=== PATIENT | male | born 1970 | race Caucasian/White ===

== ENCOUNTER 2023-05-05 08:21 | Inpatient (IN) ==
--- OUTSIDE RECORDS SUMMARY | 2023-05-05 08:27 | External Medical Summary | Summary of Care ---
Author Name Unknown Organization [facility] Address [address] [place] [address] Phone [phone] Care Team Providers Care Hand Bootmaker Name Role Phone Karuna Torres PA-C Primary Care Provider +1 [phone] Reason for Visit * Reason Onset Date Comments Medication Refill 03/22/2023 Encounter Details Date Type Department Care Team Description 03/22/2023 Refill General [facility] [address] Karuna Torres PA-C [address], [place] [id number] Acute deep vein thrombosis (DVT) of popliteal vein of left lower extremity (HCC) Allergies No known active allergiesdocumented as of this encounter (statuses as of 03/22/2023) Medications Medication Sig Dispensed Refills Start Date End Date Status Triamcinolone Acetonide 0.5 % External CreamIndications:Ecze ma, unspecified type Apply topically to affected area 2 times a day . To affected area. 60 g 5 10/03/2021 Active Betamethasone Dipropionate Aug 0.05 % External Cream (Diprolene AF) Apply to affected areas on legs, right forearm and back twice daily 50 g 0 04/02/2022 Active Famotidine 40 MG Oral Tablet (Pepcid)Indications:H eartburn TAKE 1 TABLET BY MOUTH EVERYDAY AT BEDTIME 90 Tablet 3 09/13/2022 Active Rivaroxaban 20 MG Oral Tablet (Xarelto)Indications: Acute deep vein thrombosis (DVT) of popliteal vein of left lower extremity (HCC) TAKE 1 TABLET BY MOUTH EVERY DAY WITH DINNER Strength: 20 mg 90 Tablet 1 12/24/2022 Active Acetaminophen 500 MG Oral Tablet (Tylenol) Take 2 Tablets by mouth once a week as needed. 0 Active One-A-Day Mens 50+ Oral Tablet Take 1 Tablet by mouth every morning. 0 Active Metoprolol Succinate ER 25 MG Oral Tablet Extended Release 24 Hour (toPROL XL)Indications:Suprav entricular tachycardia Take 1 Tablet by mouth daily as needed (palpitations). 90 Tablet 3 01/04/2023 Active documented as of this encounter (statuses as of 03/22/2023) Active Problems Problem Noted Date Acute deep vein thrombosis (DVT) of popl iteal vein of left lower extremity 10/03/2021 Neuropathy, median nerve, right 04/06/20 Family history of [place] (myocardial infarct ion) 09/09/2017 OBESITY, BMI= 36.47 07/24/10 07/24/2010 Acne vulgaris Overview: on tetracycline Heartburn documented as of this encounter (statuses as of 03/22/2023) Resolved Problems Problem Noted Date Resolved Date Obesity, Class II, BMI 35-39.9, isolated (see ac tual BMI) 06/01/2014 09/09/2017 Overview: bmi= 35.84 06/01/14 Routine medical exam 07/24/2010 09/09/2017 Screening for cardiovascular condition 1 09/09/2017 Pneumonia due to organism 07/24/20102017 Overview: ICD-10 update of inactive term ADVANCE DIRECTIVE INFORMATION 02/27/2006 Overview: No, Advance Directive brochure offered , patient declined. documented as of this encounter (statuses as of 03/22/2023) Immunizations No known immunizationsdocumented as of this encounter Social History Tobacco Use Types Packs/Day Years Used Date Smoking Tobacco: Some Days Cigars Smokeless Tobacco: Never Comments:States never smoked as a habit. started AT AGE 38 Alcohol Use Standard Drinks/Week Comments Yes 0 (1 standard drink = 0.6 oz pur e alcohol) On occasion Food Insecurity Answer Date Recorded Within the past 12 months, y ou worried that your food would run out before you got money to buy more. Never true 05/12/2019 Within the past 12 months, t he food you bought just didn't last and you didn't have money to get more. Never true 05/12/2019 Sex Assigned at Date Recorded Male 05/12/2019 1:[address] Job Start Date Occupation Industry Not on file Not on file Not on file documented as of this encounter Miscellaneous Notes * Telephone Encounter - Ailin Chaidez RPh - 03/22/2023 9:21 PM EDTRefused Prescriptions: Disp Refills Rivaroxaban 20 MG Oral Tablet (Xarelto) 90 Tab*0 Sig: TAKE 1 TABLET BY MOUTH EVERY DAY WITH DINNER Strength: 20 mgRefused By: AILIN CHAIDEZ for Refusal: Too soon documented in this encounter Plan of Treatment Health Maintenance Due Date Last Done Comments Hepatitis B (1 of 3 - 3-dose series) 1968 Pneumococcal Vaccine: Pediatrics (0 to 5 Years) and At-Risk Patients (6 to 64 Years) (1 - PCV) 1974 HIV Screening 11/12/1983 Hepatitis C Screening 1986 DTaP,Tdap,and Td Vaccines (1 - Tdap) 11/12/1987 Cologuard 2013 Colonoscopy 2013 Colorectal Cancer Screening 2013 Fecal Occult Blood Test 2013 Sigmoidoscopy 2013 Zoster Vaccines (1 of 2) 2018 Depression Screening 05/12/2020 05/12/2019 COVID-19 Vaccine (2 - 2022-) 02/01/2023 09/10/2020 Influenza Vaccine (FLU shot) (#1) 2023 Diabetes Screening 04/27/2025 04/27/2022, 0 12/18/2021, 10/03/2021, Additional history exists Lipid Panel 01/04/2028 01/03/2023, 04/04, 05/11/2019 GARDASIL-HPV IMMUNIZATION SERIES Aged Out No longer eligible based on patient's age to complete this topic MENINGOCOCCAL (MENACTRA/MENVEO) Aged Out No longer eligible based on patient's age to complete this topic documented as of this encounter Medical Devices Not on filedocumented as of this encounter Visit Diagnoses Diagnosis Acute deep vein thrombosis (DVT) of popliteal vein of left lower extremity (HCC) documented in this encounter Care Teams Hand Bootmaker Relationship Specialty Start Date End Date Karuna Torres PA-C [address] [place] [address] PCP - General Physician Electrical Products Engineer 05/13/19 documented as of this encounter
--- OUTSIDE RECORDS SUMMARY | 2023-05-05 08:27 | External Medical Summary | Summary of Care ---
Author Name Unknown Organization [facility] Address [address] [place] [address] Phone [phone] Care Team Providers Care Bulk Truck Driver Name Role Phone Karuna Torres PA-C Primary Care Provider [phone] [phone] Reason for Visit * Reason Comments eRx-Medication Refill Encounter Details Date Type Department Care Team Description 12/23/2022 Refill General Internal Medicine [facility] [address] Karuna Torres PA-C [address] [place], [place] [id number] Acute deep vein thrombosis (DVT) of popliteal vein of left lower extremity (HCC) Allergies No known active allergiesdocumented as of this encounter (statuses as of 12/24/2022) Medications Medication Sig Dispensed Refills Start Date End Date Status Triamcinolone Acetonide 0.5 % External CreamIndications:Ecz kirill, unspecified type Apply topically to affected area 2 times a day . To affected area. 60 g 5 10/03/2021 Active Betamethasone Dipropionate Aug 0.05 % External Cream (Diprolene AF) Apply to affected areas on legs, right forearm and back twice daily 50 g 0 04/02/2022 Active Rosuvastatin Calcium 5 MG Oral Tablet (Crestor) Take 1 Tablet (5 mg) by mouth in the morning. 30 Tablet 11 05/03/2022 Active Additional Information Patient not taking.Reported on 07/16/2022 Famotidine 40 MG Oral Tablet (Pepcid)Indications: Heartburn TAKE 1 TABLET BY MOUTH EVERYDAY AT BEDTIME 90 Tablet 3 09/13/2022 Active Metoprolol Succinate ER 25 MG Oral Tablet Extended Release 24 Hour (toPROL XL)Indications:Supra ventricular tachycardia (HCC) Take 1 Tablet by mouth in the morning. 90 Tablet 3 11/14/2022 Active Rivaroxaban 20 MG Oral Tablet (Xarelto)Indications :Acute deep vein thrombosis (DVT) of popliteal vein of left lower extremity (HCC) TAKE 1 TABLET BY MOUTH EVERY DAY WITH DINNER Strength: 20 mg 90 Tablet 1 12/24/2022 Active documented as of this encounter (statuses as of 12/24/2022) Active Problems Problem Noted Date Acute deep vein thrombosis (DVT) of popl iteal vein of left lower extremity 10/03/2021 Neuropathy, median nerve, right 04/06/20 Family history of [place] (myocardial infarct ion) 09/09/2017 OBESITY, BMI= 36.47 07/24/10 07/24/2010 Acne vulgaris Overview: on tetracycline Heartburn documented as of this encounter (statuses as of 12/24/2022) Resolved Problems Problem Noted Date Resolved Date [...] as of this encounter (statuses as of 12/24/2022) Immunizations No known immunizationsdocumented as of this encounter Social History Tobacco Use Types Packs/Day Years Used Date Smoking Tobacco: Some Days Cigars Smokeless Tobacco: Never Comments:States never smoked as a habit. started AT AGE 38 Alcohol Use Standard Drinks/Week Comments Yes 0 (1 standard drink = 0.6 oz pur e alcohol) Food Insecurity Answer Date Recorded Within the [...] encounter Miscellaneous Notes * Telephone Encounter - Vilma Franco RPh - 12/24/2022 3:25 PM EDT Refused Prescriptions: Disp Refills Xarelto 20 MG Oral Tablet (Rivaroxaban) 90 Tab*0 Sig: TAKE 1 TABLET BY MOUTH EVERY DAY WITH DINNERRefused By: VILMA FRANCO for Refusal: Duplicate Re quest documented in this encounter Plan of Treatment Upcoming Encounters Date Type Specialty Care Team Description 01/04/2023 Office Visit Cardiology Luann Petty CRNP [address] [place] [address] Health Maintenance Due Date Last Done Comments [...] Zoster Vaccines (1 of 2) 2018 Depression Screening, Annual for Pts 12 and Over 05/12/2020 05/12/2019 COVID-19 Vaccine (2 - Booster for Shellie series) 11/05/2020 09/10/2020 Influenza Vaccine (FLU shot) (#1) 2023 Diabetes Screening 04/27/2025 04/27/2022, 0 12/18/2021, 10/03/2021, Additional history exists Lipid Panel 04/27/2027 04/27/2022, 05/11/2019 GARDASIL-HPV IMMUNIZATION SERIES Aged Out No [...] (HCC) documented in this encounter Care Teams Bulk Truck Driver Relationship Specialty Start Date End Date Karuna Torres PA-C [address] [place] [address] PCP - General Physician Commercial Painter 05/13/19 documented as of this encounter
--- OUTSIDE RECORDS SUMMARY | 2023-05-05 08:27 | External Medical Summary ---
Author Name Unknown Address Unknown Organization [id number]:[facility] - [address] [place] [address] Laboratory Report Ordering Provider Test Date Status SHANTELLE JOSHI 01/03/2023 07:20:03 Final Observation Date Value Abnormality Reference (Units ) Status Triglyceride 01/03/2023 07:20:03 255 Above high normal <=174 (mg/dL) Final Triglyceride Reference Range s (mg/dL):
<150 Acceptable
150-174 Borderline high
175-499 High
>=500 Very high Cholesterol 01/03/2023 07:20:03 168 <200 (mg /dL) Final Total Cholesterol Reference Ranges (mg/dL):
<200 Desirable
200-239 Borderline high
>=240 High HDL 01/03/2023 07:20:03 41 >39 (mg/dL ) Final HDL Cholesterol Reference Ra nges (mg/dL):
>=60 High (Desirable)
<50 Low (Undesirable) For Females
<40 Low (Undesirable) For Males NON-HDL CHOLESTEROL 01/03/2023 07:20:03 127 <=159 (mg/dL) Final Non-HDL Cholesterol Referenc e Range (mg/dL):
<100 Target level for high risk ASCVD patient
<130 Optimal for general population
130-159 Near optimal for general population
160-189 Borderline High
190-219 High
>=220 Very High Performing Location [facility] - [address] [place] [address]
--- OUTSIDE RECORDS SUMMARY | 2023-05-05 08:27 | External Medical Summary | Summary of Care ---
Author Name Unknown Organization [facility] Address [address] [facility] [place] [address] Phone [phone] Care Team Providers Care Retail Event Coordinator Name Role Phone Karuna Torres PA-C Primary Care Provider [phone] [phone] Encounter Details Date Type Department Care Team Description 11/14/2022 Refill Cardiology, [facility] [address] [facility] [place] [address] Bronson Stokes, [address] [facility] [address] Supraventricular tachycardia (HCC) Allergies No known active allergiesdocumented as of this encounter (statuses as of 11/14/2022) Medications Medication Sig Dispensed Refills Start Date End Date Status Triamcinolone Acetonide 0.5 % External CreamIndications:E czema, unspecified type Apply topically to affected area [...] on 07/16/2022 Famotidine 40 MG Oral Tablet (Pepcid)Indication s:Heartburn TAKE 1 TABLET BY MOUTH EVERYDAY AT BEDTIME 90 Tablet 3 09/13/2022 Active Xarelto 20 MG Oral Tablet (Rivaroxaban)Indic ations:Acute deep vein thrombosis (DVT) of popliteal vein of left lower extremity (HCC) TAKE 1 TABLET BY MOUTH EVERY DAY WITH DINNER 90 Tablet 0 09/26/2022 Active Metoprolol Succinate ER 25 MG Oral Tablet Extended Release 24 Hour (toPROL XL)Indications:Sup raventricular tachycardia (HCC) Take 1 Tablet by mouth in the morning. 90 Tablet 3 11/14/2022 Active Metoprolol Succinate ER 25 MG Oral Tablet Extended Release 24 Hour (toPROL XL)Indications:Sup raventricular tachycardia (HCC) Take 1 Tablet by mouth in the morning. 90 Tablet 3 09/25/2022 Discontinue d(Refill) documented as of this encounter (statuses as of 11/14/2022) Active Problems Problem Noted Date Acute deep vein thrombosis (DVT) of popl iteal vein of left lower extremity 10/03/2021 Neuropathy, median nerve, right 04/06/20 Family history of [place] (myocardial infarct ion) 09/09/2017 OBESITY, BMI= 36.47 07/24/10 07/24/2010 Acne vulgaris Overview: on tetracycline Heartburn documented as of this encounter (statuses as of 11/14/2022) Resolved Problems Problem Noted Date Resolved Date [...] as of this encounter (statuses as of 11/14/2022) Immunizations No known immunizationsdocumented as of this [...] encounter Miscellaneous Notes * Telephone Encounter - Bronson Stokes DO - 11/14/2022 12:37 PM EDTSigned Prescriptions: Disp Refills Metoprolol Succinate ER 25 MG Oral Tablet *90 Tab*3 Sig: Take 1 Tablet by mouth in the morning. Authorizing Provider: BRONSON STOKES * Telephone Encounter - Bao Choe RN - 11/14/2022 11:11 AM EDT Pending Prescriptions: Disp Refills Metoprolol Succinate ER 25 MG Oral Tablet*90 Tab*3 Sig: Take 1 Tablet by mouth in the morning. Last Visit: 10/04/2022 (in office), Visit date not found (telemedicine) Next Visit: 01/04/2023 Last medication order date: 09/25/2022 Have you choosen a preferred pharm?? yes Patient Active Problem List Diagnosis Code OBESITY, BMI= 36.47 07/24/10 E66.9 Acne vulgaris L70.0 Family history of [place] (myocardial infarction) Z82.49 Heartburn R12 Neuropathy, median nerve, right G56.11 Acute deep vein thrombosis (DVT) of popliteal vein of left lower extremity (HCC) I82.432 Labs: Lab Results Component Value Date/Time CREATININE - [facility] 0.9 04/27/2022 07:15 AM CREATININE - [facility] 0.9 05/11/2019 07:28 AM Lab Results Component Value Date/Time POTASSIUM - [facility] 4.5 04/27/2022 07:15 AM POTASSIUM - [facility] 4.5 05/11/2019 07:28 AM Lab Results Component Value Date/Time TSH - [facility] 2.75 10/03/2021 09:49 AM TSH - [facility] 3.18 03/05/2020 09:12 AM Lab Results Component Value Date/Time LDL CHOLESTEROL (CALCULATED) - [facility] 73 04/27/2022 07:15 AM LDL CHOLESTEROL (CALCULATED) - [facility] 79 05/11/2019 07:28 AM Lab Results Component Value Date/Time ALT - [facility] 25 04/27/2022 07:15 AM ALT - [facility] 32 05/11/2019 07:28 AM Hemoglobin AIC Results: No results found for: HEMOGLOBIN A1C documented in this encounter Plan of Treatment Upcoming Encounters Date Type Specialty Care Team Description 12/19/2022 Office Visit Hematology Oncology Carmina Dawn MD [address] [facility] [place] [address] 01/04/2023 Office Visit Cardiology Luann Petty CRNP [address] [facility] [place] [address] Health Maintenance Due Date Last Done Comments [...] series) 11/05/2020 09/10/2020 Influenza Vaccine (FLU shot) (Season Ended) 2023 Diabetes Screening 04/27/2025 04/27/2022, 0 12/18/2021, [...] as of this encounter Visit Diagnoses Diagnosis Supraventricular tachycardia (HCC) Other specified cardiac dysrhythmias documented in this encounter Care Teams Retail Event Coordinator Relationship Specialty Start Date End Date Karuna Torres PA-C [address] [place] [address] PCP - General Physician Marble Chip Terrazzo Worker 05/13/19 documented as of this encounter
--- OUTSIDE RECORDS SUMMARY | 2023-05-05 08:27 | External Medical Summary | Summary of Care ---
Author Name Unknown Organization [facility] Address [address] [facility] [place] [address] Phone [phone] Care Team Providers Care Green Pipefitter Name Role Phone Karuna Torres PA-C Primary Care Provider +1 [phone] Reason for Visit * Reason Onset Date Comments Medication Refill 12/23/2022 Encounter Details Date Type Department Care Team Description 12/23/2022 Refill General Internal Medicine [facility] [place] [address] [facility] [place] [address] Tyrone Rooney PA-C [address] [facility] [place] [address] Acute deep vein thrombosis (DVT) of popliteal [...] 11/14/2022 Active Rivaroxaban 20 MG Oral Tablet (Xarelto)Indicatio ns:Acute deep vein thrombosis (DVT) of popliteal vein of left lower extremity (HCC) TAKE 1 TABLET BY MOUTH EVERY DAY WITH DINNER Strength: 20 mg 90 Tablet 1 12/24/2022 Active Xarelto 20 MG Oral Tablet (Rivaroxaban)Indic ations:Acute deep vein thrombosis (DVT) of popliteal vein of left lower extremity (HCC) TAKE 1 TABLET BY MOUTH EVERY DAY WITH DINNER 90 Tablet 0 09/26/2022 Discontinue d(Refill) documented as of this encounter (statuses as of 12/24/2022) Active Problems Problem Noted Date Acute deep vein thrombosis (DVT) of popl iteal vein of left lower extremity 10/03/2021 Neuropathy, median nerve, right 04/06/20 Family history of [place] (myocardial infarct ion) 09/09/2017 OBESITY, BMI= 36.47 [...] encounter Miscellaneous Notes * Telephone Encounter - Karuna Torres PA-C - 12/24/2022 12:54 PM EDTSigned Prescriptions: Disp Refills Rivaroxaban 20 MG Oral Tablet (Xarelto) 90 Tab*1 Sig: TAKE 1 TABLET BY MOUTH EVERY DAY WITH DINNER Strength: 20 mg Authorizing Provider: KARUNA TORRSE * Telephone Encounter - John Sanders LPN - 12/24/2022 8:34 AM EDTPending Prescriptions: Disp Refills Rivaroxaban 20 MG Oral Tablet (Xarelto) 90 Tab*1 Sig: TAKE 1 TABLET BY MOUTH EVERY DAY WITH DINNER Strength: 20 mg * Telephone Encounter - John Sanders LPN - 12/24/2022 8:30 AM EDT Provider to address: Pending Prescriptions: Disp Refills Rivaroxaban 20 MG Oral Tablet (Xarelto) 90 Tab*1 Sig: TAKE 1 TABLET BY MOUTH EVERY DAY WITH DINNER Strength: 20 mg Last Visit: 10/20/2021 (in office), Visit date not found (telemedicine) Next Visit: Visit date not found Last date the medication was ordered: 09/26/22 Patient Active Problem List Diagnosis Code OBESITY, BMI= 36.47 07/24/10 E66.9 Acne vulgaris L70.0 Family history of [place] (myocardial infarction) Z82.49 Heartburn R12 Neuropathy, median [...] Results: No results found for: HEMOGLOBIN A1C Reason for Call: Medication Refill Contact: [facility] Contact Type: Medication Outcome: pending Total Time including non face to face (minutes): 5 documented in this encounter Plan of Treatment Upcoming Encounters Date Type Specialty Care Team Description 01/04/2023 Office Visit Cardiology Luann Petty CRNP [address] [place] [address] Health Maintenance Due Date Last Done Comments [...] (HCC) documented in this encounter Care Teams Green Pipefitter Relationship Specialty Start Date End Date Karuna Torres PA-C [address] [place] [address] PCP - General Physician Chrome Tanner 05/13/19 documented as of this encounter
--- OUTSIDE RECORDS SUMMARY | 2023-05-05 08:27 | External Medical Summary | Summary of Care ---
Author Name Unknown Organization [facility] Address [address] [facility] [place] [address] Phone [phone] Care Team Providers Care Hogshead Head Matcher Name Role Phone Karuna Torres PA-C Primary Care Provider +1 [phone] Reason for Visit * Reason Onset Date Comments Medication Refill 03/22/2023 Encounter Details Date Type Department Care Team Description 03/22/2023 Refill General Internal Medicine [facility] [place] [address] [facility] [place] [address] Tyrone Rooney PA-C [address] [facility] [place] [address] Heartburn Allergies No known active allergiesdocumented as of this encounter (statuses as of 03/23/2023) Medications Medication Sig Dispensed Refills Start Date End Date Status Triamcinolone Acetonide 0.5 % External CreamIndications:E czema, unspecified type Apply topically to affected area 2 times a day . To affected area. 60 g 5 10/03/2021 Active Betamethasone Dipropionate Aug 0.05 % External Cream (Diprolene AF) Apply to affected areas on legs, right forearm and back twice daily 50 g 0 04/02/2022 Active Rivaroxaban 20 MG Oral Tablet (Xarelto)Indicatio [...] Release 24 Hour (toPROL XL)Indications:Sup raventricular tachycardia Take 1 Tablet by mouth daily as needed (palpitations). 90 Tablet 3 01/04/2023 Active Famotidine 40 MG Oral Tablet (Pepcid)Indication s:Heartburn Take 1 Tablet by mouth at bedtime. 90 Tablet 0 03/23/2023 Active Famotidine 40 MG Oral Tablet (Pepcid)Indication s:Heartburn TAKE 1 TABLET BY MOUTH EVERYDAY AT BEDTIME 90 Tablet 3 09/13/2022 03/22/2023 Discontinue d(Refill) documented as of this encounter (statuses as of 03/23/2023) Active Problems Problem Noted Date Acute deep vein thrombosis (DVT) of popl iteal vein of left lower extremity 10/03/2021 Neuropathy, median nerve, right 04/06/20 Family history of [place] (myocardial infarct ion) 09/09/2017 OBESITY, BMI= 36.47 07/24/10 07/24/2010 Acne vulgaris Overview: on tetracycline Heartburn documented as of this encounter (statuses as of 03/23/2023) Resolved Problems Problem Noted Date Resolved Date [...] as of this encounter (statuses as of 03/23/2023) Immunizations No known immunizationsdocumented as of this [...] Miscellaneous Notes * Telephone Encounter - Bronson Mejía [facility] - 03/23/2023 8:45 AM EDTSigned Prescriptions: Disp Refills Famotidine 40 MG Oral Tablet (Pepcid) 90 Tab*0 Sig: Take 1 Tablet by mouth at bedtime.Authorizing Provider: KARUNA TORRES User: BRONSON [place]------- * Telephone Encounter - Bronson Mejía [facility] - 03/23/2023 8:45 AM EDT Please contact patient so that an appointment can be scheduled with his PRIMARY CARE provider. Refill authorized to hold patient over in the mean time. Last Visit: 09/08/2021 (in office), Visit date not found (telemedicine) Next Visit: Visit date not found Thank You, Bronson [place] [facility] Clinical Pharmacist [facility] ([facility]) (formerly Telepharmacy) 03/23/2023, 8:45 AM * Telephone Encounter - Bronson Mejía [facility] - 03/23/2023 8:43 AM EDT Pending Prescriptions: Disp Refills Famotidine 40 MG Oral Tablet (Pepcid) 90 Tab*3 Last Visit: 09/08/2021 (in office), Visit date not found (telemedicine) Next Visit: Visit date not found If no future appointments scheduled, and last appointment is greater than a year ago, please schedule patient for a follow-up appointment Last date the medication was ordered: 09/13/22 Pharmacy: [id number] [id number] [facility] Is this request for a controlled substance? No Urine Drug Screen:No results found for this or any previous visit. Patient Phone Numbers Labs: Lab Results Component Value Date/Time CREAT 0.9 04/27/2022 07:15 AM CREAT 0.9 05/11/2019 07:28 AM POTASSIUM 4.5 04/27/2022 07:15 AM POTASSIUM 4.5 05/11/2019 07:28 AM TSH 2.75 10/03/2021 09:49 AM TSH 3.18 03/05/2020 09:12 AM LDLCALC 73 04/27/2022 07:15 AM LDLCALC 79 05/11/2019 07:28 AM LDLDIRECT 97 01/03/2023 07:20 AM ALT 25 04/27/2022 07:15 AM ALT 32 05/11/2019 07:28 AM documented in this encounter Plan of Treatment [...] 2018 Depression Screening 05/12/2020 05/12/2019 COVID-19 Vaccine ( season) 2023 09/10/2020 Influenza Vaccine (FLU shot) (#1) 2023 [...] as of this encounter Visit Diagnoses Diagnosis Heartburn documented in this encounter Care Teams Hogshead Head Matcher Relationship Specialty Start Date End Date Karuna Torres PA-C [address] [place] [address] PCP - General Physician Mutual Fund Accountant 05/13/19 documented as of this encounter
--- OUTSIDE RECORDS SUMMARY | 2023-05-05 08:27 | External Medical Summary ---
Author Name Unknown Address Unknown Organization : Laboratory Report Ordering Provider Test Date Status SHANTELLE JOSHI 01/03/2023 07:20:03 Final Observation Date Value Abnormality Reference (Units ) Status Lipoprotein A 01/03/2023 07:20:03 <10 <75 (n mol/L) Final Assay was repeated and verif ied.
Risk Category
Optimal < 75 nmol/L
Moderate 75 - 125 nmol/L
High > 125 nmol/L
Cardiovascular event risk category cut points
(optimal, moderate, high) are based on Mary Davila
JACC 2017;69:692-711.

Test Performed at:
[facility]
[address]
[place] [address]
Jimmie Stiles M.D., Ph.D.,Director of Laboratories Performing Location
--- OUTSIDE RECORDS SUMMARY | 2023-05-05 08:27 | External Medical Summary | Summary of Care ---
Author Name Unknown Organization [facility] Address [address] [place] [address] Phone [phone] Care Team Providers Care Reproductive Endocrinologist Name Role Phone Karuna Torres PA-C Primary Care Provider [phone] Reason for Visit * Reason Comments Outpatient Testing Encounter Details Date Type Department Care Team Description 01/03/2023 Laboratory Laboratory, [facility] [address] [place] [address] [facility] [address] [place] [address] Dyslipidemia, goal LDL below 70; Abnormal echocardiogram; Supraventricular tachycardia (HCC); ASVD (arteriosclerotic vascular disease) Allergies No known active allergiesdocumented as of this encounter (statuses as of 01/03/2023) Medications Medication Sig Dispensed Refills Start Date [...] as of this encounter (statuses as of 01/03/2023) Active Problems Problem Noted Date Acute deep vein thrombosis (DVT) of popl iteal vein of left lower extremity 10/03/2021 Neuropathy, median nerve, right 04/06/20 Family history of OR (myocardial infarct ion) 09/09/2017 OBESITY, BMI= 36.47 07/24/10 07/24/2010 Acne vulgaris Overview: on tetracycline Heartburn documented as of this encounter (statuses as of 01/03/2023) Resolved Problems Problem Noted Date Resolved Date [...] as of this encounter (statuses as of 01/03/2023) Immunizations No known immunizationsdocumented as of this [...] on file documented as of this encounter Plan of Treatment Upcoming Encounters Date Type Specialty Care Team Description 01/04/2023 Office Visit Cardiology Luann Petty CRNP [address] [place] [address] Pending Results Name Type Priority Associated Diagnoses Date /Time LIPOPROTEIN (A) Lab Routine Dyslipidemia, goal LDL below 70 Abnormal echocardiogram Supraventricular tachycardia (HCC) ASVD (arteriosclerotic vascular disease) 01/03/2023 7:20 AM EDT LIPID PANEL WITH DIRECT LDL IF TG IS HIGH Lab Routine Dyslipidemia, goal LDL below 70 Abnormal echocardiogram Supraventricular tachycardia (HCC) ASVD (arteriosclerotic vascular disease) 01/03/2023 7:20 AM EDT Health Maintenance Due Date Last Done Comments [...] as of this encounter Visit Diagnoses Diagnosis Dyslipidemia, goal LDL below 70 Other and unspecified hyperlipidemia Abnormal echocardiogram Nonspecific (abnormal) findings on radiological and other examination of other intrathoracic organs Supraventricular tachycardia (HCC) Other specified cardiac dysrhythmias ASVD (arteriosclerotic vascular disease) Generalized and unspecified atherosclerosis documented in this encounter Care Teams Reproductive Endocrinologist Relationship Specialty Start Date End Date Karuna Torres PA-C [address], [place] [id number] PCP - General Physician Licensed Home Inspector 05/13/19 documented as of this encounter
--- OUTSIDE RECORDS SUMMARY | 2023-05-05 08:27 | External Medical Summary | Summary of Care ---
Author Name Unknown Organization [facility] Address [address] [place] [facility] [place] [address] Phone [phone] Care Team Providers Care Petroleum Refining Equipment Operator Name Role Phone Karuna Torres PA-C Primary Care Provider [phone] Reason for Visit * Reason Comments Follow Up 3 month follow up. O ne episode about a month ago of SVT that lasted 5- 10 minutes and took a metoprolol. Edema in left leg is the same. Denies chest pain, SOB and dizziness. Encounter Details Date Type Department Care Team Description 01/04/2023 Office Visit Cardiology, [facility] [address] [facility] [place] [id number] Luann [facility]ty CRNP [address] [place] [place] [address] Supraventricular tachycardia (HCC)*; Dyslipidemia, goal LDL below 100; Hyperlipemia, mixed Allergies No known active allergiesdocumented as of this encounter (statuses as of 01/04/2023) Medications Medication Sig Dispensed Refills Start Date [...] 04/02/2022 Active Famotidine 40 MG Oral Tablet (Pepcid)Indication s:Heartburn TAKE 1 TABLET BY MOUTH EVERYDAY AT BEDTIME 90 Tablet 3 09/13/2022 Active Rivaroxaban 20 MG Oral Tablet (Xarelto)Indicatio [...] tachycardia (HCC) Take 1 Tablet by mouth daily as needed (palpitations). 90 Tablet 3 01/04/2023 Active Rosuvastatin Calcium 5 MG Oral Tablet (Crestor) Take 1 Tablet (5 mg) by mouth in the morning. 30 Tablet 11 05/03/2022 3 Discontinued Metoprolol Succinate ER 25 MG Oral Tablet Extended Release 24 Hour (toPROL XL)Indications:Sup raventricular tachycardia (HCC) Take 1 Tablet by mouth in the morning. 90 Tablet 3 11/14/2022 3 Discontinued documented as of this encounter (statuses as of 01/04/2023) Active Problems Problem Noted Date Acute deep vein thrombosis (DVT) of popl iteal vein of left lower extremity 10/03/2021 Neuropathy, median nerve, right 04/06/20 20 Family history of UT (myocardial infarct ion) 09/09/2017 OBESITY, BMI= 36.47 07/24/10 07/24/2010 Acne vulgaris Overview: on tetracycline Heartburn documented as of this encounter (statuses as of 01/04/2023) Resolved Problems Problem Noted Date Resolved Date [...] as of this encounter (statuses as of 01/04/2023) Immunizations No known immunizationsdocumented as of this encounter Social History Tobacco Use Types Packs/Day Years Used Date Smoking Tobacco: Some Days Cigars Smokeless Tobacco: Never Tobacco Cessation:Ready to Q uit: Not Asked; Counseling Given: Not Answered Comments:States never smoked as a habit. started [...] on file documented as of this encounter Last Filed Vital Signs Vital Sign Reading Time Taken Comments Blood Pressure 126/86 01/04/2023 9:22 AM EDT Pulse 80 01/04/2023 9:22 AM EDT Temperature - - Respiratory Rate 16 01/04/2023 9:22 AM EDT Oxygen Saturation - - Inhaled Oxygen Concentration - - Weight 124.2 kg (273 lb 12 oz) 01/04/2023 9:22 A M EDT Height - - Body Mass Index 37.13 11/08/2021 10:01 AM EDT documented in this encounter Progress Notes * OBI Hernandez - 01/04/2023 9:30 AM EDT Cardiology Outpatient Visit 01/04/2023 Primary Radiology Transcriptionist: Dr. Stokes Past medical history: 1. Palpitations, x1 episode of prolonged SVT which was a triggered event per zio, 10/2021 2. Abnormal Echo, 10/19/2021- ? Mass, felt to be due to artifact from aortic sclerosis per Dr. Stokes's review of imaging. 3. Hx of unprovoked left leg DVT, 10/2021, on Xarelto following with heme a. Possible lupus? Blood work thought to be a false-positive due to Xarelto per Hematology (12/20/2021 OV note) HPI 52-year-old male presenting to the cardiology office today in routine follow-up. Was last evaluatedby Dr. Stokes approximately 3 months ago. At his last appointment he was feeling generally well but did have concerns regarding erectile dysfunction, felt that metoprolol was contributing and medication was ultimately discontinued. About 1 month ago patient had an episode of palpitations that lastedabout 5-10 minutes. He took 25 mg of metoprolol with relief in symptoms. Does not utilized beta-blockers since that time. Today the patient presents feeling well and offers no acute concerns. Denies any exertional chest pain or unusual shortness of breath. No further palpitations. No dizziness or syncope. No orthopnea or PND. Has chronic left lower extremity edema due to prior DVT in October of 2021. Symptoms at baseline.No fever, chills, cough, hematochezia, melena, or hemoptysis. He states he is compliant with all medications, and offers no side effects. Lipid panel was performed prior to today's appointment- LDL controlled. LP(a) pending. Patient remains hesitant to start statin therapy given potential side effects of brain fog. Current Outpatient Medications Medication Sig Dispense Refill Triamcinolone Acetonide 0.5 % External Cream Apply topically to affected area 2 times a day . To affected area. 60 g 5 Betamethasone Dipropionate Aug 0.05 % External Cream (Diprolene AF) Apply to affected areas on legs, right forearm and back twice daily 50 g 0 Famotidine 40 MG Oral Tablet (Pepcid) TAKE 1 TABLET BY MOUTH EVERYDAY AT BEDTIME 90 Tablet 3 Rivaroxaban 20 MG Oral Tablet (Xarelto) TAKE 1 TABLET BY MOUTH EVERY DAY WITH DINNER Strength: 20 mg 90 Tablet 1 Acetaminophen 500 MG Oral Tablet (Tylenol) Take 2 Tablets by mouth once a week as needed. One-A-Day Mens 50+ Oral Tablet Take 1 Tablet by mouth every morning. Metoprolol Succinate ER 25 MG Oral Tablet Extended Release 24 Hour (toPROL XL) Take 1 Tablet bymouth daily as needed (palpitations). 90 Tablet 3 No current facility-administered medications for this visit. 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 started AT AGE 38 Vaping Use Vaping Use: Never used Substance Use Topics Alcohol use: Yes Comment: On occasion Drug use: No Comment: LIVES ON COFFEE/ENERGY DRINKS Review of patient's allergies indicates: No Known Allergies Review of Systems: See HPI for pertinent positives. All others negative, other than those noted in HPI. Physical Exam BP 126/86 | Pulse 80 | Resp 16 | Wt 124.2 kg (273 lb 12 oz) | BMI 37.13 kg/m | BSA 2.51 m General: No acute distress. A+Ox3. HEENT: Normocephalic. Atraumatic. Conjunctiva and sclera clear. NECK: No carotid bruits. No JVD. Carotid upstrokes are brisk. Heart: RRR. S1 and S2 noted without murmur, rubs, gallops. PMI non displaced. Lungs: Clear to auscultation. No wheezes, rhonchi, rales. Abdomen: Normal bowel sounds. Soft. Nontender. No masses or organomegaly. No abdominal bruits. Extremities: Trace nonpitting bilateral lower extremity edema, left worse than right. No clubbing or cyanosis. Pulses: radial=2/4, posterior tibial=2/4, dorsalis pedis = 2/4. NEURO: No focal deficits. PSYCH: Normal. Lab data/imaging study review: Echo 10/19/2021 The examination is adequate to evaluate the referral indication. The qualitative LV ejection fraction is 60-64% (normal). The left ventricular diastolic function is mildly abnormal (grade I). The left atrium is normal sized. There is a possible small left atrial echodensity visualized in the parasternal long-axis and parasternal RV inflow/outflow view. Findings represent artifact verses intracardiac mass. Consider transesophageal echocardiogram for further evaluation. o 10/03/2021 Patient had a min HR of 59 bpm, max HR of 226 bpm, and avg HR of 89 bpm. Predominant underlying rhythm was Sinus Rhythm. 9 Supraventricular Tachycardia runs occurred, the run with the fastest interval lasting 11 mins 42 secs with a max rate of 226 bpm (avg 186 bpm); the run with the fastest interval was also the longest. Supraventricular Tachycardia was detected within +/- 45 seconds of symptomatic patient event(s). Isolated SVEs were rare (<1.0%), SVE Couplets were rare (<1.0%), and SVE Triplets were rare (<1.0%). Isolated VEs were rare (<1.0%), and no VE Couplets or VE Triplets were present. MD notification criteria for Supraventricular Tachycardia met - report posted prior to notification per account request (KG). A patient triggered event as well as diary triggered event correlated with an episode of supraventricular tachycardia ( SVT) which occurred on 10/05/2021, onset 5:27 p.m., that lasted 11 minutes and 42 seconds, with average rate of 186 beats per minute, rate range 148 beats per minute- to 126 beats per min. Impression/Plan: 1. Supraventricular tachycardia (HCC) -History of paroxysmal symptomatic SVT, only symptomatic with longer episodes. -Erectile dysfunction with beta-que therapy 1. Symptoms generally well controlled. Okay to utilize metoprolol succinate 25 mg on an as-needed basis. 2. Mixed hyperlipidemia -LDL borderline controlled, 97. Goal LDL below 100. Triglycerides elevated. -Lipoprotein(a) pending The 10-year ASCVD risk score (Gage DK, et al., 2019) is: 9.3% Values used to calculate the score: Age: 52 years Sex: Male Is Non- : No Diabetic: No Tobacco smoker: Yes Systolic Blood Pressure: 126 mmHg Is BP treated: No HDL Cholesterol: 41 mg/dL Total Cholesterol: 168 mg/dL 1. Once ASCVD risk is greater than 7.5% statin therapy is recommended. Patient is hesitant on starting statin therapy at this time. Should lipoprotein(a) be elevated would again recommend statin therapy initiation. In the meantime patient will work on lifestyle modifications and plan on repeating acholesterol panel in 6 months. The patient agrees to the above plan and will call with additional questions or concerns. ER with all emergencies advised. Follow Up: Return in about 1 year (around 01/05/2024). I spent a total of 30 minutes on the date of service in preparation, delivery, and documentation ofthe care provided to Al Puente excluding any time spent in the performance of separately billed services. OBI Maddox, Department of Cardiology This chart was completed in part utilizing [employer] Speech Voice Recognition Software. Grammatical errors, random word insertions, prounoun errors, and incomplete sentences are an occasional consequence of this system due to software limitations, ambient noise, and hardware issues. Any formal questions or concerns about the content, text, or information contained within the body of this dictation should be directly addressed to the provider for clarification. documented in this encounter Nursing Notes * Bry Gamble LPN - 01/04/2023 9:22 AM EDT Patient identified by full name and date of Chief Complaint Patient presents with Follow Up 3 month follow up. One episode about a month ago of SVT that lasted 5-10 minutes and took a metoprolol. Edema in left leg is the same. Denies chest pain, SOB and dizziness. Examination Room: 7 Name: Al Puente Date of : (1970). Reason for Visit: 3 month follow up. Interim Hospitalization(s): Denies Problems/Concerns: See chief complaint Chest Pain/SOB: See chief complaint [facility] Discussed: Not applicable [facility] is a way you can talk to your provider online through e-mail. Would you like to sign up? I can activate it for you? ALREADY ACTIVE Patient was instructed to not get up on the exam table until directed and assisted by their provider; patient is to remain seated in the chair/ wheelchair/ exam table for fall prevention and safety reasons. Patient is aware to have assistance to step down off exam table with personnel. Patient voiced full comprehension of instructions. documented in this encounter Plan of Treatment Scheduled Orders Name Type Priority Associated Diagnoses Orde r Schedule EKG EKG Routine Supraventricular tachycardia (HCC) Ordered: 01/04/2023 LIPID PANEL WITH DIRECT LDL IF TG IS HIGH Lab Routine Supraventricular tachycardia (HCC) Dyslipidemia, goal LDL below 100 Hyperlipemia, mixed Expected: 07/07/2023, Expires: 01/05/2024 Health Maintenance Due Date Last Done Comments [...] this encounter Visit Diagnoses Diagnosis Supraventricular tachycardia (HCC)- Primary Other specified cardiac dysrhythmias Dyslipidemia, goal LDL below 100 Other and unspecified hyperlipidemia Hyperlipemia, mixed Mixed hyperlipidemia documented in this encounter Care Teams Petroleum Refining Equipment Operator Relationship Specialty Start Date End Date Karuna Torres PA-C [address] [place] [address] PCP - General Physician Instrumental Musician 05/13/19 documented as of this encounter"
[2023-05-05] MEDS ORDERED: SODIUM CHLORIDE 0.9% 1,000 ML IV STA (08:43)
--- NOTE | 2023-05-05 08:45 | Emergency Department Note ---
Impression & Plan Pancreatitis, Abnormal CT of the abdomen, Hyperglycemia, Abdominal pain ED Provider Note NAME: THERESE RODRIGUEZ AGE: 52 SEX: M : 1970 ARRIVES VIA: Walk-In INFORMANT: Patient, ED PROVIDER(S): Clifford Ku MD CHIEF COMPLAINT: Abdominal pain MEDICAL DECISION MAKING: Patient presents due to concern for abdominal pain primarily located in the upper abdomen. IV was established and blood work obtained along with CT abdomen pelvis. Patient declined any pain or nausea medication. Screening EKG and troponin added as the patient felt as if some of the pain radiated from the upper abdomen into the left chest. No exertional symptoms. Blood shows a normal white count hemoglobin and platelet count normal kidney function. BSG 377 pseudohyponatremia 135. Calcium 8.3. Significant elevation of lipase at 1165. Urinalysis with ketones and glucose. The patient did receive IV fluids. CT abdomen pelvis does show concern for acute pancreatitis and pancreatic necrosis cannot be excluded. No well-defined lesion noted. Recommended follow-up CT and pelvis in 1 month. Fatty liver noted. Also some associated mesenteric and omental edema which may be related to the acute pancreatitis. Discussion w/ other healthcare providers: Stephanie khan PA-C and Dr. Castillo inpatient medicine service Prior /Outside records reviewed: None Differential diagnosis: Appendicitis, testicular torsion, UTI, diverticulitis, obstruction, renal colic, mesenteric adenitis, enteririts, PUD, pancreatitis, biliary pathology, hernia, volvulus, constipation, as well as other pathologies were considered. Diagnostics, as interpreted by me: ECG: None Cardiac monitoring: An order was placed for continuous cardiac monitoring. The monitor shows a rate of 92 with sinus rhythm. Patient was placed on pulse oximetry Medical decision rules: None Imaging studies: I informally interpreted the patient's CT abdomen pelvis which does show pancreatic inflammation with formal report to follow. HPI: Patient presents due to concern for abdominal pain. Patient states that he got up this morning had his routine normal morning bowel movement made some coffee sat down at his desk and within about 15 or 20 minutes the patient developed upper abdominal pain. Patient states that he has really constipated with occasional sharp twinges. Patient describes it as being mostly in the upper abdomen epigastrium left upper quadrant states that it feels hard. Patient did have another bowel movement thereafter and thought maybe it was gas. Patient did try to drink some flat Coca-Cola but had an episode of emesis. No blood in the urine or stool. Patient [place] any dysuria or hematuria. Patient denies any falls or trauma no overlying skin changes or rash. The patient states that he has not had these Symptoms before. Patient does occasionally smoke a cigar and does drink scotch. Patient states he did not drink any alcohol yesterday. PAST MEDICAL HISTORY: See Below PAST SURGICAL HISTORY: See Below SOCIAL HISTORY: See Below HOME MEDICATIONS: See Below ALLERGIES: See Below VITALS: See Below PHYSICAL EXAMINATION: GENERAL: NAD, non-toxic. Wearing glasses EYE EXAM: Normal conjunctiva. PERRL, no anisocoria and EOM's grossly intact w/o pain. OROPHARYNX: Moist mucus membranes, grossly normal dentition. NECK: Supple, no nuchal rigidity, no adenopathy, non-tender. No signs of meningismus. FROM of the neck with good chin to chest and neck extension. No stridor. LUNGS: Clear to auscultation. Normal chest wall mechanics. HEART: NSR, no MRG. ABDOMEN: Abdomen soft, epigastric and left upper quadrant pain without lower abdominal pain, negative obturators and psoas,, no masses, no rebound or guarding. BACK: No CVA TTP. SKIN: No rashes and no bruising. UPPER EXTREMITIES: Upper extremities are grossly normal. LOWER EXTREMITIES: Grossly normal, no edema. NEURO EXAM: A&O x3, cranial nerves II-XII grossly intact, normal speech, moves all 4 extremities. Past Med/Surg History Medical History Chronic anticoagulation History of DVT (deep vein thrombosis) Surgical History History of spinal surgery Family History Brother Myocardial infarction Father Myocardial infarction Mother COPD (chronic obstructive pulmonary disease) Social History Tobacco Type: Cigars Cigarettes Per Day: occassional cigar; Hx Alcohol Use: Yes Alcohol type: hard liquor Hx Substance Use: No Preferred Language: Trinidadian Feels Safe at Home: Yes Allergies Allergies Allergy/AdvReac Type Severity Reaction Status Date / Time No Known Allergies Allergy Unverified 05/05/23 09:39 Home Meds Home Medications Medication Instructions Recorded Confirmed famotidine 40 mg tablet 40 mg PO HS 05/05/23 05/05/23 rivaroxaban 20 mg tablet (Xarelto) 20 mg PO QPM 05/05/23 05/05/23 Results & Data (ED) Vital Signs Vital Signs - 24 hr 05/05/23 08:31 05/05/23 08:55 05/05/23 10:40 Temperature 36.5 C Temperature Source Temporal Artery Scan Pulse Rate 98 H 90 Pulse Rate [Left Finger] 90 Pulse Rhythm Regular Respiratory Rate 16 18 16 Respiratory Effort / Characteristics Non-Labored Respiratory Depth Normal Blood Pressure 158/96 H Blood Pressure [Left Arm] 175/111 H Blood Pressure Mean 116 Blood Pressure Mean [Left Arm] 132 Blood Pressure Position [Left Arm] Sitting Pulse Oximetry 97 96 98 Oxygen Delivery Method Room Air Room Air Sepsis Recent Fever Within 48 Hours No Sepsis New/Unexplained Change in Mental Status No Sepsis Action Taken by Nursing No Action Required Home Medications Current Medication List: was personally reviewed by me Laboratory Data Attestation: I reviewed the patient's lab results. 05/05/23 08:56 05/05/23 08:56 Lab Results 05/05/23 05/05/23 05/05/23 Range/Units 08:56 09:33 10:46 WBC 10.64 (4.8-10.8) K/ul RBC 4.98 (4.70-6.10) M/uL Hgb 14.4 (14.0-18.0) g/dl Hct 41.9 L (42.0-52.0) % MCV 84.1 (80.0-100.0) fL MCH 28.9 (25.0-34.0) pg MCHC 34.4 (32.0-36.0) g/dL RDW Std Deviation 39.0 (36.4-46.3) fL RDW Coeff of [place] 12.9 (11.5-14.5) % Plt Count 303 (130-400) K/uL MPV 9.8 (9.4-12.4) fL Immature Gran % (Auto) 0.5 % Neut % (Auto) 75.1 % Lymph % (Auto) 15.9 % [place] % (Auto) 5.4 % Eos % (Auto) 2.5 % Baso % (Auto) 0.6 % Neut # (Auto) 8.00 H (1.40-6.50) K/uL Lymph # (Auto) 1.69 (1.20-3.40) K/uL [place] # (Auto) 0.57 (0.11-0.59) K/uL Eos # (Auto) 0.27 (0.00-0.50) K/uL Baso # (Auto) 0.06 (0.00-0.20) K/uL Immature Gran # (Auto) 0.05 (0.01-0.20) K/uL Sodium 135 L (136-145) mmol/L Potassium 4.1 (3.5-5.1) mmol/L Chloride 100 (98-107) mmol/L Carbon Dioxide 28 (21-32) mmol/L Anion Gap 7 (3-11) BUN 11 (6-23) mg/dl Creatinine 0.83 (0.6-1.4) mg/dl Est Cr Clr Drug Dosing 134.0 ml/min Est GFR ( Amer) 115.6 ml/min Est GFR (Non-Af Amer) 99.8 ml/min BUN/Creatinine Ratio 13.3 (10-20) Glucose 377 H* (70-99(Fasting)) mg/dl POC Glucose 322 H* (70-99) mg/dl Calcium 8.3 L (8.6-10.3) mg/dl Total Bilirubin 0.7 (0.2-1.0) mg/dl AST 25 (13-39) U/L ALT 33 (7-52) U/L Alkaline Phosphatase 95 (34-104) U/L Troponin I High Sens 4.4 (0-20) pg/ml Total Protein 7.3 (6.0-8.3) gm/dl Albumin 4.2 (3.4-5.0) gm/dl Globulin 3.1 (2.5-4.0) gm/dl Albumin/Globulin Ratio 1.4 (0.9-2) Lipase 1165 H (11-82) U/L Urine Color Yellow Urine Appearance Clear (Clear) Urine pH 7.0 (4.5-7.5) Ur Specific [place] 1.033 H (1.000-1.030) Urine Protein Negative (Negative) Urine Glucose (UA) 3+ H (Negative) Urine Ketones 2+ H (Negative) Urine Blood Negative (Negative) Urine Nitrite Negative (Negative) Urine Bilirubin Negative (Negative) Urine Urobilinogen Negative (Negative) Ur Leukocyte Esterase Negative (Negative) Administered Medications Discontinued Medications Sodium Chloride (Nss) 1,000 mls @ 999 mls/hr IV .Q1H1M STA Stop: 05/05/23 09:43 Last Admin: 05/05/23 09:07 Dose: 999 mls/hr Documented By: MICHELE Ioversol (Optiray 320 500ml) 90 ml IV ONCE ONE Stop: 05/05/23 10:11 Last Admin: 05/05/23 10:10 Dose: 90 ml Documented By: CARLOS Imaging Data Radiologist's Impression: Abdomen/Pelvis CT 05/05/23 08:43 CT OF THE ABDOMEN AND PELVIS WITH CONTRAST CLINICAL HISTORY: LUQ/epgiastric pain, nausea and vomiting. COMPARISON STUDY: None. TECHNIQUE: Following IV administration of 90 mL of Optiray, axial images of the abdomen and pelvis were obtained from the lung bases to the proximal femurs. Images were reviewed in the axial, sagittal, and coronal planes. IV contrast was administered without complication. Automated exposure control was utilized for the study. A dose lowering technique was utilized adhering to the principles of ALARA. CT DOSE: 1542.56 mGy.cm FINDINGS: Lung bases are unremarkable. No pneumatosis, free air or portal venous gas is present. Moderate to severe hepatic steatosis is noted. The liver is enlarged. There is mild splenomegaly. Adrenal glands and kidneys are unremarkable. There is no hydronephrosis. There is no biliary or pancreatic ductal dilatation. Pancreatic head and uncinate process are atrophic. The body and tail are edematous. There is hypoenhancement of the pancreatic head, body and tail. No peripancreatic fluid collection is present. Fluid adjacent to the pancreatic body and tail is noted. There is also mesenteric and omental edema. No fluid collections are present. A 2.1 cm focus of clustered nodular densities within the mesentery on image 220 of 413 are present. Colonic diverticulosis is noted. There is no evidence for acute diverticulitis. The appendix is normal. Major vasculature is patent. Postoperative findings within the lumbar spine are incidentally noted. IMPRESSION: 1. Findings consistent with acute pancreatitis. Pancreatic necrosis cannot be excluded given hypoenhancement of the majority of the pancreas. No well-defined lesion identified however a follow-up CT of the abdomen pancreas protocol in one month is recommended to exclude the possibility of an underlying pancreatic lesion. 2. Hepatic steatosis and hepatomegaly. 3. Mesenteric and omental edema. This may be related to acute pancreatitis although is nonspecific and can be assessed on follow-up CT. 2.1 cm focus of nodular densities within the mesentery could simply represent mesenteric vessels. However, this should be assessed assessed on the follow-up CT to ensure resolution. 4. No bowel obstruction. No bowel wall thickening. 5. Colonic diverticulosis. No evidence for acute diverticulitis. ACT 112: Negative or not required by law. Electronically signed by: Pb Payan M.D. 05/05/2023 10:44 AM Discharge Plan Visit Data Chief Complaint: Abdominal Pain Stated Complaint: ABDOMINAL PAIN, CHEST PAIN - REFERRED BY TELENURSE ED Provider: Clifford Ku Discharge Problem: Pancreatitis, Abnormal CT of the abdomen, Hyperglycemia, Abdominal pain Forms Stand Alone Forms: [employer] Prescriptions Prescriptions: No Action famotidine 40 mg tablet 40 mg PO HS Xarelto 20 mg tablet 20 mg PO QPM Referrals Referrals: Karuna Torres PA-C [Primary Care Provider] - Discharge Problem: Pancreatitis Qualifiers: Chronicity: acute Pancreatitis type: unspecified pancreatitis type Acute pancreatitis complication: unspecified Qualified Code(s): K85.90 - Acute pancreatitis without necrosis or infection, unspecified Abdominal pain Qualifiers: Abdominal location: epigastric Qualified Code(s): R10.13 - Epigastric pain
[2023-05-05 09:15] LABS: Basophils # (auto) 0.06 K/uL (0.00-0.20); Basophils % (auto) 0.6 %; Eosinophils # (auto) 0.27 K/uL (0.00-0.50); Eosinophils % (auto) 2.5 %; Hematocrit (blood only) 41.9 % (42.0-52.0); Hemoglobin 14.4 g/dl (14.0-18.0); Immature Granulocytes # (auto) 0.05 K/uL (0.01-0.20); Immature Granulocytes % (auto) 0.5 %; Lymphocytes # (auto) 1.69 K/uL (1.20-3.40); Lymphocytes % (auto) 15.9 %; Mean Corpuscular Hemoglobin 28.9 pg (25.0-34.0); Mean Corpuscular Hgb Conc 34.4 g/dL (32.0-36.0); Mean Corpuscular Volume 84.1 fL (80.0-100.0); Mean Platelet Volume 9.8 fL (9.4-12.4); Monocytes # (auto) 0.57 K/uL (0.11-0.59); Monocytes % (auto) 5.4 %; Neutrophils % (auto) 75.1 %; Platelet Count 303 K/uL (130-400); RDW Coefficient of Variation 12.9 % (11.5-14.5); Red Blood Count 4.98 M/uL (4.70-6.10); White Blood Count 10.64 K/ul (4.8-10.8)
[2023-05-05 09:49] LABS: Appearance Urine Clear (Clear); Bilirubin Urine Negative (Negative); Blood Urine Negative (Negative); Color Urine Yellow; Glucose Urine UA 3+ (Negative); Ketones Urine 2+ (Negative); Leukocyte Esterase Urine Negative (Negative); Nitrite Urine Negative (Negative); Protein Urine Negative (Negative); Specific Gravity Urine 1.033 (1.000-1.030); Urobilinogen Urine Negative (Negative)
[2023-05-05 09:56] LABS: Albumin Globulin Ratio 1.4 (0.9-2); Albumin Level 4.2 gm/dl (3.4-5.0); BUN Creatinine Ratio 13.3 (10-20); Bilirubin,Total 0.7 mg/dl (0.2-1.0); Calcium 8.3 mg/dl (8.6-10.3); Est GFR (African American) 115.6 ml/min; Est GFR (Non-African American) 99.8 ml/min; Globulin 3.1 gm/dl (2.5-4.0); Potassium 4.1 mmol/L (3.5-5.1); Total Protein 7.3 gm/dl (6.0-8.3); Troponin I High Sensitivity 4.4 pg/ml (0-20)
[2023-05-05] MEDS ORDERED: OPTIRAY 320 500ml IV ONE (10:10)
--- NOTE | 2023-05-05 10:46 | CT Scan Report ---
CT OF THE ABDOMEN AND PELVIS WITH CONTRAST CLINICAL HISTORY: LUQ/epgiastric pain, nausea and vomiting. COMPARISON STUDY: None. TECHNIQUE: Following IV administration of 90 mL of Optiray, axial images of the abdomen and pelvis we re obtained from the lung bases to the proximal femurs. Images were reviewed in the axial, sagittal, and coronal planes. IV contrast was administered without complication. Automated exposure control wa s utilized for the study. A dose lowering technique was utilized adhering to the principles of ALARA . CT DOSE: 1542.56 mGy.cm FINDINGS: Lung bases are unremarkable. No pneumatosis, free air or portal venous gas is present. Mode rate to severe hepatic steatosis is noted. The liver is enlarged. There is mild splenomegaly. Adrenal glands and kidneys are unremarkable. There is no hydronephrosis. There is no biliary or pancreatic d uctal dilatation. Pancreatic head and uncinate process are atrophic. The body and tail are edematous. There is hypoenhancement of the pancreatic head, body and tail. No peripancreatic fluid collection i s present. Fluid adjacent to the pancreatic body and tail is noted. There is also mesenteric and omen erendira edema. No fluid collections are present. A 2.1 cm focus of clustered nodular densities within the mesentery on image 220 of 413 are present. Colonic diverticulosis is noted. There is no evidence for acute diverticulitis. The appendix is normal. Major vasculature is patent. Postoperative findings wi thin the lumbar spine are incidentally noted. IMPRESSION: 1. Findings consistent with acute pancreatitis. Pancreatic necrosis cannot be excluded given hypoenha ncement of the majority of the pancreas. No well-defined lesion identified however a follow-up CT of the abdomen pancreas protocol in one month is recommended to exclude the possibility of an underlying pancreatic lesion. 2. Hepatic steatosis and hepatomegaly. 3. Mesenteric and omental edema. This may be related to acute pancreatitis although is nonspecific an d can be assessed on follow-up CT. 2.1 cm focus of nodular densities within the mesentery could simpl y represent mesenteric vessels. However, this should be assessed assessed on the follow-up CT to ensu re resolution. 4. No bowel obstruction. No bowel wall thickening. 5. Colonic diverticulosis. No evidence for acute diverticulitis. ACT 112: Negative or not required by law. Electronically signed by: Pb Payan M.D. 05/05/2023 10:44 AM
--- NOTE | 2023-05-05 11:35 | History & Physical Report ---
Date of Service May 05, 2023 Assessment & Plan (1) Pancreatitis: (2) Abdominal pain: (3) Abnormal CT of the abdomen: Plan: Patient is a 48-year-old male with PMH DVT chronically anticoagulated on Xarelto presented to ER with complaint of abdominal pain started today. Denies fever/chills. Last ETOH drink 2 days ago. In ER afebrile. No leukocytosis. Lipase: 1165. LFTs WNL CT ABD/PELVIS: 1. Findings consistent with acute pancreatitis. Pancreatic necrosis cannot be excluded given hypoenhancement of the majority of the pancreas. No well-defined lesion identified however a follow-up CT of the abdomen pancreas protocol in one month is recommended to exclude the possibility of an underlying pancreatic lesion. 2. Hepatic steatosis and hepatomegaly. 3. Mesenteric and omental edema. This may be related to acute pancreatitis although is nonspecific and can be assessed on follow-up CT. 2.1 cm focus of nodular densities within the mesentery could simply represent mesenteric vessels. However, this should be assessed assessed on the follow-up CT to ensure resolution. 4. No bowel obstruction. No bowel wall thickening. 5. Colonic diverticulosis. No evidence for acute diverticulitis. NPO IVF Morphine prn pain GI consult CBC, CMP, lipase in AM Will need follow up CT abd/pelvis (4) Hyperglycemia: Plan: Random glucose 377 Insulin sliding scale per protocol A1c in a.m. Patient reports is not interested in starting oral medications. Would like to further discuss with his PCP outpatient to come up with alternate regimen/lifestyle modifications (5) HTN (hypertension): Plan: Hypertensive in ER May have underlying undiagnosed HTN, but also having abdominal pain and initially denied pain medication Now willing to try pain medication. Will attempt to control pain and monitor BP response May need to add additional BP agents. Patient states does not want to start BP medications and is refusing oral BP meds. Will accept IV prn medication currently. (6) History of DVT (deep vein thrombosis): (7) Chronic anticoagulation: Plan: History lower extremity DVT. Chronically anticoagulated on Xarelto Continue Xarelto (8) GERD (gastroesophageal reflux disease): Plan: Hold home Pepcid and convert to IV for now DVT Prophylaxis On Xarelto Follows with Karuna Torres PA-C for routine care Pt was seen and care coordinated with Dr Castillo. See addendum History of Present Illness Chief Complaint: abdominal pain Primary Care Provider: Karuna Torres PA-C Patient is a 48-year-old male with PMH DVT chronically anticoagulated on Xarelto, GERD, presented to ER with complaint of abdominal pain started this morning. Patient states woke up this morning feeling fine, had couple coffee with creamer and went to bathroom and after started with epigastric and left upper quadrant abdominal discomfort that radiates to left chest and left rib cage. Patient states was having constipation. Did have BM today. Patient states initially thought discomfort was gas pain however pain has continued. Reports some nausea, trying half a glass flat cola. Reports 1 episode emesis. Denies history of pancreatitis. States drinks ETOH socially. Last last had 1 drink 2 days ago. Denies fever/chills, diaphoresis, hematemesis, melena, hematochezia, LLAMAS, dizziness, syncope, neck pain, other CP, SOB, palpitations, cough, sore throat, rhinorrhea, paresthesias, extremity weakness, extremity edema, rashes, urinary symptoms. Allergies Allergy/AdvReac Type Severity Reaction Status Date / Time No Known Allergies Allergy Unverified 05/05/23 09:39 Home Medications Medication Instructions Recorded Confirmed Type famotidine 40 mg tablet 40 mg PO HS 05/05/23 05/05/23 History rivaroxaban 20 mg tablet (Xarelto) 20 mg PO QPM 05/05/23 05/05/23 History Past Med/Surg History Medical History (Updated 05/05/23 @ 12:20 by Viry Hanson PA-C) GERD (gastroesophageal reflux disease) Chronic anticoagulation History of DVT (deep vein thrombosis) Surgical History History of spinal surgery Family History Brother Myocardial infarction Father Myocardial infarction Mother COPD (chronic obstructive pulmonary disease) Social History Tobacco Type: Cigars Cigarettes Per Day: occassional cigar; Hx Alcohol Use: Yes Alcohol type: hard liquor Hx Substance Use: No Preferred Language: Hungarian Feels Safe at Home: Yes Review of Systems Review of Systems: All systems reviewed & are unremarkable except as noted in HPI & below Physical Exam Physical Exam: General: no acute distress, obese Head: normocephalic, atraumatic Eyes: conjunctiva non-injected, anicteric ENT: normal inspection external ears, nose, mucous membranes moist Neck: supple, trachea midliner Lungs: clear, no respiratory distress, no wheezing/rhonchi/rales CV: RRR, no murmur, no pretibial edema Abd: protuberant, normal BS, soft, +tender palpation epigastric, LUQ with guarding, diffuse lower abdomen Ext: no cyanosis, no calf tenderness Neuro: A&O x 3, no focal deficits noted, normal affect Skin: warm, dry Results & Data Results & Data Vital Signs (Past 12 Hours) Vital Signs Temp Pulse Pulse Resp BP BP Pulse Ox 05/05/23 10:40 90 16 175/111 H 98 05/05/23 08:55 90 18 96 05/05/23 08:31 36.5 C 98 H 16 158/96 H 97 O2 Del Method 05/05/23 10:40 05/05/23 08:55 Room Air 05/05/23 08:31 Room Air Laboratory Results Short CBC 05/05/23 Range/Units 08:56 WBC 10.64 (4.8-10.8) K/ul Hgb 14.4 (14.0-18.0) g/dl Hct 41.9 L (42.0-52.0) % Plt Count 303 (130-400) K/uL BMP 05/05/23 08:56 Sodium 135 L Potassium 4.1 Chloride 100 Carbon Dioxide 28 BUN 11 Creatinine 0.83 Glucose 377 H* Calcium 8.3 L Liver Function 05/05/23 Range/Units 08:56 Total Bilirubin 0.7 (0.2-1.0) mg/dl AST 25 (13-39) U/L ALT 33 (7-52) U/L Alkaline Phosphatase 95 (34-104) U/L Albumin 4.2 (3.4-5.0) gm/dl Urine 05/05/23 Range/Units 09:33 Urine Color Yellow Urine Appearance Clear (Clear) Urine pH 7.0 (4.5-7.5) Ur Specific [place] 1.033 H (1.000-1.030) Urine Protein Negative (Negative) Urine Glucose (UA) 3+ H (Negative) Diagnostic Findings Abdomen/Pelvis CT 05/05/23 08:43 CT OF THE ABDOMEN AND PELVIS WITH CONTRAST CLINICAL HISTORY: LUQ/epgiastric pain, nausea and vomiting. COMPARISON STUDY: None. TECHNIQUE: Following IV administration of 90 mL of Optiray, axial images of the abdomen and pelvis were obtained from the lung bases to the proximal femurs. Images were reviewed in the axial, sagittal, and coronal planes. IV contrast was administered without complication. Automated exposure control was utilized for the study. A dose lowering technique was utilized adhering to the principles of ALARA. CT DOSE: 1542.56 mGy.cm FINDINGS: Lung bases are unremarkable. No pneumatosis, free air or portal venous gas is present. Moderate to severe hepatic steatosis is noted. The liver is enlarged. There is mild splenomegaly. Adrenal glands and kidneys are unremarkable. There is no hydronephrosis. There is no biliary or pancreatic ductal dilatation. Pancreatic head and uncinate process are atrophic. The body and tail are edematous. There is hypoenhancement of the pancreatic head, body and tail. No peripancreatic fluid collection is present. Fluid adjacent to the pancreatic body and tail is noted. There is also mesenteric and omental edema. No fluid collections are present. A 2.1 cm focus of clustered nodular densities within the mesentery on image 220 of 413 are present. Colonic diverticulosis is noted. There is no evidence for acute diverticulitis. The appendix is normal. Major vasculature is patent. Postoperative findings within the lumbar spine are incidentally noted. IMPRESSION: 1. Findings consistent with acute pancreatitis. Pancreatic necrosis cannot be excluded given hypoenhancement of the majority of the pancreas. No well-defined lesion identified however a follow-up CT of the abdomen pancreas protocol in one month is recommended to exclude the possibility of an underlying pancreatic lesion. 2. Hepatic steatosis and hepatomegaly. 3. Mesenteric and omental edema. This may be related to acute pancreatitis although is nonspecific and can be assessed on follow-up CT. 2.1 cm focus of nodular densities within the mesentery could simply represent mesenteric vessels. However, this should be assessed assessed on the follow-up CT to ensure resolution. 4. No bowel obstruction. No bowel wall thickening. 5. Colonic diverticulosis. No evidence for acute diverticulitis. ACT 112: Negative or not required by law. Electronically signed by: Pb Payan M.D. 05/05/2023 10:44 AM ECG Additional Comments: sinus rhythm, rate 89 per my interpretation Code Status & VTE Plan VTE Prophylaxis Plan VTE Prophylaxis will be ordered: Yes Supervising Physician Co-Signing Physician Notes Patient is a 48-year-old male with history of DVT on Xarelto, GERD and no other significant past medical history presents with history of epigastric pain radiating to left upper quadrant and rib started since this morning. He also reports chronic constipation. Last bowel movement this morning. Admits to having some nausea and vomiting. Last alcohol drink 3 days ago, denies daily use. Please review HPI for complete details of presentation. I personally reviewed blood work, imaging studies and EKG available at the time of admission. EKG showed normal sinus rhythm, low voltage QRS, QTc 442. CT abdomen suggestive of acute pancreatitis, cannot exclude pancreatic lesion or necrosis. Also showed findings suggestive of hepatic steatosis, hepatomegaly and mesenteric and omental edema, colonic diverticulosis. Blood glucose elevated at 377, lipase elevated 1165. On exam patient is obese, no apparent distress, normocephalic atraumatic, EOMI, normal breath sounds, clear to auscultation, S1- S2, no murmur, trace pedal edema, abdomen soft, generalized tenderness, + voluntary guarding, no rigidity, normal bowel sounds, alert, awake, oriented, grossly no focal deficits. Patient is admitted for management of acute [place] creatitis. Also hyperglycemia likely diabetes mellitus undiagnosed. Started on IV fluids, bowel rest, pain control as needed. Gastroenterology consulted. Will check HbA1c. Blood pressure elevated in ED likely situational secondary to pain. Monitor BP. I personally reviewed the record. Patient is interviewed and examined at bedside. Patient's care is coordinated with Viry Hanson PA-C. Please refer to the documentation above for details of patient's presentation and for discussion of other issues.
--- NOTE | 2023-05-05 13:27 | Electrocardiogram Report ---
Test Reason : Blood Pressure : / mmHG Vent. Rate : 089 BPM Atrial Rate : 089 BPM P-R Int : 162 ms QRS Dur : 084 ms QT Int : 364 ms P-R-T Axes : 054 040 031 degrees QTc Int : 442 ms Normal sinus rhythm Possible Left atrial enlargement Low voltage QRS Borderline ECG When compared with ECG of 30-APR-2019 17:33, No significant change was found Confirmed by Faisal Gomes ([id number]) on 05/05/2023 1:27:34 PM Referred By: REFERRED SELF Confirmed By:Faisal Gomes
[2023-05-05] MEDS ORDERED: GLUCOSE 10 TAB/TUBE PO PRN (14:04)
[2023-05-05] MEDS ORDERED: hydrALAZINE HCL 20 MG/ML VIAL IV PRN (14:04)
[2023-05-05] MEDS ORDERED: POLYETHYLENE (MIRALAX) 17 GM PACK PO PRN (14:04)
[2023-05-05] MEDS ORDERED: GLUCOSE 40% GEL 15 GM TUBE PO PRN (14:04)
[2023-05-05] MEDS ORDERED: GLUCAGON FOR INJ 1 MG VIAL SQ PRN (14:04)
[2023-05-05] MEDS ORDERED: DEXTROSE 50% 50 ML SYRINGE IV PRN (14:04)
[2023-05-05] MEDS ORDERED: PHARMACY GLYCEMIC MGMT CONSULT PRN (14:04)
[2023-05-05] MEDS ORDERED: CARBOHYDRATES FOR HYPOGLYCEMIA PO PRN (14:04)
[2023-05-05] MEDS ORDERED: ONDANSETRON INJ 2 MG/ML 2 ML VIAL IV PRN (14:04)
[2023-05-05] MEDS: MoRPHine SULFATE 2 MG/ML CARP IV PRN ×2 (14:31→20:06)
[2023-05-05] MEDS ORDERED: LANTUS PER UNIT CHARGE SQ ONE ×2 (14:45→21:00)
[2023-05-05] MEDS: LACTATED RINGER'S 1,000 ML IV SCH ×2 (14:49→20:08)
--- NOTE | 2023-05-05 14:50 | Pharmacy Report ---
Pharmacy Glycemic Short Note 2 - Date of Service May 05, 2023 - Glycemic Short BSG Results (Last 24 hours): 05/05/23 05/05/23 05/05/23 08:56 10:46 14:35 Glucose 377 H* POC Glucose 322 H* 257 H OUTPATIENT ANTIDIABETIC REGIMEN: * n/a HbA1c ordered for 05/06/23 AM ASSESSMENT: * AB is a 52 year old male admitted w/ acute pancreatitis * Hyperglycemia noted in ED in patient w/ no known history of diabetes * Per H&P, patient is not interested in starting oral medications at this time * BSG of 377 mg/dL on presentation -> 257 mg/dL this afternoon w/ IV fluids only * Given uncertainty in insulin needs and lack of HbA1c - will be conservative w/ initial insulin dosing * q4h Novolog while NPO PLAN FOR INPATIENT GLYCEMIC CONTROL: * Basal insulin * Lantus 10 units SC x 1 (~0.1 unit/kg) * Bolus insulin * NovoLog per scale ACHS or Q6hrs while NPO * Goal Range: Low 110 mg/dL - High 140 mg/dL * Correction Factor: 30 mg/dL/unit * Nutritional / Prandial insulin per carb ratio of 1 unit per 10 grams CHO consumed
[2023-05-05] MEDS: FAMOTIDINE 20 MG in SYRINGE 3 ML IV SCH (15:05)
[2023-05-05] MEDS: INSULIN ASPART PER UNIT CHARGE SC SCH ×2 (15:05→22:31)
[2023-05-05] MEDS ORDERED: RIVAROXABAN 20 MG TAB PO SCH (16:30)
[2023-05-05] MEDS ORDERED: Nursing to Pharmacy Communication SCH ×2 (17:30→20:00)
[2023-05-05 18:20] LABS: Amphetamines+Metham, Urine Neg (Neg); Barbiturates, Urine Neg (Neg); Benzodiazepine, Urine Neg (Neg); Cocaine, Urine Neg (Neg); MDMA (Ecstacy), Urine Neg (Neg); Marijuana, Urine Neg (Neg); Methadone, Urine Neg (Neg); Opiate, Urine Neg (Neg); Phencyclidine, Urine Neg (Neg)
[2023-05-05] MEDS: RIVAROXABAN 20 MG TAB PO SCH (20:11)
[2023-05-05] MEDS ORDERED: MoRPHine SULFATE 4 MG/ML 1 ML CARP\\VIAL IV PRN (21:07)
[2023-05-05] MEDS ORDERED: oxyCODONE HCL IR 5 MG TAB (IMMEDIATE RELEASE) PO PRN (21:07)
[2023-05-05] MEDS ORDERED: MoRPHine SULFATE 4 MG/ML 1 ML CARP\\VIAL IV STA (21:09)
[2023-05-06] MEDS: INSULIN ASPART PER UNIT CHARGE SC SCH ×8 (02:26→23:55)
[2023-05-06] MEDS: LACTATED RINGER'S 1,000 ML IV SCH ×3 (02:26→20:26)
[2023-05-06] MEDS: ACETAMINOPHEN 325 MG TAB PO PRN ×3 (02:27→14:15)
[2023-05-06 06:58] LABS: Hemoglobin 12.9 g/dl (14.0-18.0); Mean Corpuscular Hemoglobin 28.9 pg (25.0-34.0); Mean Corpuscular Hgb Conc 33.9 g/dL (32.0-36.0); Mean Corpuscular Volume 85.2 fL (80.0-100.0); Mean Platelet Volume 9.8 fL (9.4-12.4); Platelet Count 272 K/uL (130-400); RDW Coefficient of Variation 12.8 % (11.5-14.5); RDW Standard Deviation 39.8 fL (36.4-46.3); Red Blood Count 4.46 M/uL (4.70-6.10); White Blood Count 11.73 K/ul (4.8-10.8)
[2023-05-06 07:24] LABS: Albumin Globulin Ratio 1.3 (0.9-2); Albumin Level 3.6 gm/dl (3.4-5.0); BUN Creatinine Ratio 9.6 (10-20); Bilirubin,Total 0.9 mg/dl (0.2-1.0); Calcium 8.4 mg/dl (8.6-10.3); Chol HDL Ratio 3.7 (0-5); Creatinine Clr Calc Pharmacy 152.6 ml/min; Est GFR (African American) 121.9 ml/min; Est GFR (Non-African American) 105.2 ml/min; Globulin 2.7 gm/dl (2.5-4.0); Magnesium 1.5 mg/dl (1.7-2.4); Potassium 3.7 mmol/L (3.5-5.1); Total Protein 6.3 gm/dl (6.0-8.3)
[2023-05-06 08:22] LABS: Estimated Average Glucose 249 mg/dl; Hemoglobin A1C 10.3 % (4.5-5.6)
[2023-05-06] MEDS: THIAMINE HCL 100 MG TAB PO SCH (08:39)
[2023-05-06] MEDS: FOLIC ACID 400 MCG TAB PO SCH (08:39)
[2023-05-06] MEDS: FAMOTIDINE 20 MG in SYRINGE 3 ML IV SCH ×2 (08:39→20:23)
[2023-05-06] MEDS ORDERED: LANTUS PER UNIT CHARGE SC SCH (09:00)
[2023-05-06] MEDS: ERTAPENEM SODIUM 1,000 MG in SYRINGE 0 ML IV SCH (10:56)
--- NOTE | 2023-05-06 11:43 | Gastrointestinal Consultation ---
Date of Consultation May 06, 2023 Assessment & Plan (1) Pancreatitis: Plan 52-year-old male admitted with sudden onset of epigastric pain, nausea vomiting, found to have CT and laboratory evidence of pancreatitis. This appears to be acute and uncomplicated. Patient doing somewhat better today. Labs are stable, has good urine output. Normal LFTs. He is nonfebrile and not tachycardic. Abdomen soft, moderately tender. Differential diagnosis discussed, 90% of pancreatitis is due to alcohol or gallstones. The other 10% is believed to be from a mixture of medications, autoimmune, genetic or anatomic causes. He does drink alcohol on occasion, and though no obvious stone seen on imaging, he may have passed a biliary stone. - We will treat pancreatitis with IVF hydration as you are doing Analgesics as needed Antiemetics as needed - I encouraged up out of bed as tolerated Would keep n.p.o. for now, as pain resolves can consider starting clear liquids if tolerated - Trend CBC, LFTs, BMP daily We will add IgG4 subclasses to screen for any underlying cause of pancreatitis We will plan for eventual EUS as outpatient after the acute episode resolves in 6 to 8 weeks and patient is agreeable Thank you for allowing us to participate in the care of this patient. Please call with any acute changes, questions or concerns. Please see addendum below with additional recommendation from my supervising physician. Supervising Physician Co-Signing Physician Notes Consulted for pancreatitis- abd pain, lipase elevation over 1000, ct evidence of pancreatitis- normal cbd and lft's. Reports social ethanol use. Benign abd exam currently. Agree with further plan of care as documented. History of Present Illness Reason for Consultation: Pancreatitis Requesting Physician: Anna Curtis Attending Physician: Madhu Ty MD History of Present Illness This a 52-year-old male with PMH DVT on Xarelto, and others, admitted after presenting with acute onset of epigastric abdominal pain radiating into the chest and had n/v. On arrival, found to have elevated lipase greater than 1000, and CTAP consistent with acute pancreatitis, as well as hepatic steatosis and hepatomegaly, mesenteric and omental edema, may be related to acute pancreatitis. He has normal LFTs, normal platelets,normal renal function, WBC 11. Lipase is improved to 90. Ethanol WNL. Patient states he feels somewhat better today, abdominal pain is not intense. No nausea vomiting. He does have a headache, he does drink caffeine and has not had any coffee today. Symptoms came on suddenly, no previous history of pancreatitis. No family history of pancreatitis. No history of abdominal surgeries. He is afebrile, not tachycardic No new medications. No herbal medications. He does drink alcohol, but not very much, maybe 2 ounces a week. Last EtOH was on . No NSAIDs, rare Tylenol, no AC. He does use cigars on occasion. He has occasional heartburn. No dysphagia, no hematemesis, melena or hematochezia. He did have several bowel movements today and they were brown. He is passing gas, making lots of urine. No fevers or chills, jaundice, icterus, dark urine or murillo stools. Appetite has been good, no weight loss Allergies Allergy/AdvReac Type Severity Reaction Status Date / Time No Known Allergies Allergy Unverified 05/05/23 09:39 Home Medications Medication Instructions Recorded Confirmed Type famotidine 40 mg tablet 40 mg PO HS 05/05/23 05/05/23 History rivaroxaban 20 mg tablet (Xarelto) 20 mg PO QPM 05/05/23 05/05/23 History Patient History Medical History (Updated 05/06/23 @ 11:40 by Janessa Pham PA-C) Pancreatitis GERD (gastroesophageal reflux disease) Chronic anticoagulation History of DVT (deep vein thrombosis) Surgical History History of spinal surgery Family History Brother Myocardial infarction Father Myocardial infarction Mother COPD (chronic obstructive pulmonary disease) Social History Smoking Status: Never smoker Tobacco Type: Cigars Cigarettes Per Day: occassional cigar; Hx Alcohol Use: No Hx Substance Use: No Preferred Language: Indonesian Communication Ability: Effective 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: No Beliefs That Will Affect Care: None Current Living Situation: Spouse Other Information That Helps Us Care for You: No Feels Safe at Home: Yes Safety Concerns: Feels Safe At This Time Review of Systems Review of Systems: All systems reviewed & are unremarkable except as noted in HPI & below Physical Exam Constitutional: well developed, well nourished and comfortable; no acute distress Eyes: Sclera anicteric, no conjunctival injection ENMT: moist mucous membranes, no pallor Neck: trachea midline supple Respiratory: normal respiratory effort, lungs clear to auscultation Cardiovascular: RRR, no murmur, no edema Gastrointestinal (Abdomen): Bowel sounds x4 quadrants, abdomen is mildly distended, moderately tender to palpation in the epigastrium, no rebound guarding, no masses Skin: no rashes, warm and dry Neurologic: alert and oriented x 3, no obvious focal neuro deficit Psychiatric: normal mood and affect Results & Data Vital Signs (Past 12 Hours) Vital Signs Temp Pulse Resp BP BP Pulse Ox O2 Del Method 05/06/23 08:16 36.7 C 97 H 16 119/79 98 Room Air 05/06/23 04:33 36.7 C 89 20 138/82 96 Room Air 05/06/23 00:00 36.9 C 96 H 18 146/83 H 95 Room Air Laboratory Results 05/06/23 05/06/23 05/06/23 Range/Units 11:07 06:03 05:43 WBC 11.73 H (4.8-10.8) K/ul RBC 4.46 L (4.70-6.10) M/uL Hgb 12.9 L (14.0-18.0) g/dl Hct 38.0 L (42.0-52.0) % MCV 85.2 (80.0-100.0) fL MCH 28.9 (25.0-34.0) pg MCHC 33.9 (32.0-36.0) g/dL RDW Std Deviation 39.8 (36.4-46.3) fL RDW Coeff of Shelby 12.8 (11.5-14.5) % Plt Count 272 (130-400) K/uL MPV 9.8 (9.4-12.4) fL Sodium 134 L (136-145) mmol/L Potassium 3.7 (3.5-5.1) mmol/L Chloride 100 (98-107) mmol/L Carbon Dioxide 28 (21-32) mmol/L Anion Gap 6 (3-11) BUN 7 (6-23) mg/dl Creatinine 0.73 (0.6-1.4) mg/dl Est Cr Clr Drug Dosing 152.6 ml/min Est GFR ( Amer) 121.9 ml/min Est GFR (Non-Af Amer) 105.2 ml/min BUN/Creatinine Ratio 9.6 L (10-20) Glucose 233 H (70-99(Fasting)) mg/dl POC Glucose 180 H 248 H (70-99) mg/dl Estimat Average Glucose 249 mg/dl Hemoglobin A1c 10.3 H (4.5-5.6) % Calcium 8.4 L (8.6-10.3) mg/dl Magnesium 1.5 L (1.7-2.4) mg/dl Total Bilirubin 0.9 (0.2-1.0) mg/dl AST 17 (13-39) U/L ALT 24 (7-52) U/L Alkaline Phosphatase 73 (34-104) U/L Total Protein 6.3 (6.0-8.3) gm/dl Albumin 3.6 (3.4-5.0) gm/dl Globulin 2.7 (2.5-4.0) gm/dl Albumin/Globulin Ratio 1.3 (0.9-2) Triglycerides 164 H (0-150) mg/dl Cholesterol 133 (0-200) mg/dl LDL Cholesterol, Calc 64 mg/dl VLDL Cholesterol, Calc 33 H (0-30) mg/dl HDL Cholesterol 36 mg/dl Cholesterol/HDL Ratio 3.7 (0-5) Lipase 90 H (11-82) U/L Urine Opiates Screen (Neg) Ur Methadone, Qual (Neg) Urine Barbiturates (Neg) Ur Phencyclidine (PCP) (Neg) U Amphetamin/Meth Scrn (Neg) MDMA (Ecstasy) Screen (Neg) U Benzodiazepines Scrn (Neg) Ur Cocaine Metabolite (Neg) U Marijuana (THC) Screen (Neg) Ethyl Alcohol mg/dL (<10.0) mg/dl 05/06/23 05/05/23 05/05/23 Range/Units 02:19 22:27 15:55 WBC (4.8-10.8) K/ul RBC (4.70-6.10) M/uL Hgb (14.0-18.0) g/dl Hct (42.0-52.0) % MCV (80.0-100.0) fL MCH (25.0-34.0) pg MCHC (32.0-36.0) g/dL RDW Std Deviation (36.4-46.3) fL RDW Coeff of Shelby (11.5-14.5) % Plt Count (130-400) K/uL MPV (9.4-12.4) fL Sodium (136-145) mmol/L Potassium (3.5-5.1) mmol/L Chloride (98-107) mmol/L Carbon Dioxide (21-32) mmol/L Anion Gap (3-11) BUN (6-23) mg/dl Creatinine (0.6-1.4) mg/dl Est Cr Clr Drug Dosing ml/min Est GFR ( Amer) ml/min Est GFR (Non-Af Amer) ml/min BUN/Creatinine Ratio (10-20) Glucose (70-99(Fasting)) mg/dl POC Glucose 234 H 229 H (70-99) mg/dl Estimat Average Glucose mg/dl Hemoglobin A1c (4.5-5.6) % Calcium (8.6-10.3) mg/dl Magnesium (1.7-2.4) mg/dl Total Bilirubin (0.2-1.0) mg/dl AST (13-39) U/L ALT (7-52) U/L Alkaline Phosphatase (34-104) U/L Total Protein (6.0-8.3) gm/dl Albumin (3.4-5.0) gm/dl Globulin (2.5-4.0) gm/dl Albumin/Globulin Ratio (0.9-2) Triglycerides (0-150) mg/dl Cholesterol (0-200) mg/dl LDL Cholesterol, Calc mg/dl VLDL Cholesterol, Calc (0-30) mg/dl HDL Cholesterol mg/dl Cholesterol/HDL Ratio (0-5) Lipase (11-82) U/L Urine Opiates Screen (Neg) Ur Methadone, Qual (Neg) Urine Barbiturates (Neg) Ur Phencyclidine (PCP) (Neg) U Amphetamin/Meth Scrn (Neg) MDMA (Ecstasy) Screen (Neg) U Benzodiazepines Scrn (Neg) Ur Cocaine Metabolite (Neg) U Marijuana (THC) Screen (Neg) Ethyl Alcohol mg/dL < 10.0 (<10.0) mg/dl 05/05/23 05/05/23 Range/Units 14:35 09:33 WBC (4.8-10.8) K/ul RBC (4.70-6.10) M/uL Hgb (14.0-18.0) g/dl Hct (42.0-52.0) % MCV (80.0-100.0) fL MCH (25.0-34.0) pg MCHC (32.0-36.0) g/dL RDW Std Deviation (36.4-46.3) fL RDW Coeff of Shelby (11.5-14.5) % Plt Count (130-400) K/uL MPV (9.4-12.4) fL Sodium (136-145) mmol/L Potassium (3.5-5.1) mmol/L Chloride (98-107) mmol/L Carbon Dioxide (21-32) mmol/L Anion Gap (3-11) BUN (6-23) mg/dl Creatinine (0.6-1.4) mg/dl Est Cr Clr Drug Dosing ml/min Est GFR ( Amer) ml/min Est GFR (Non-Af Amer) ml/min BUN/Creatinine Ratio (10-20) Glucose (70-99(Fasting)) mg/dl POC Glucose 257 H (70-99) mg/dl Estimat Average Glucose mg/dl Hemoglobin A1c (4.5-5.6) % Calcium (8.6-10.3) mg/dl Magnesium (1.7-2.4) mg/dl Total Bilirubin (0.2-1.0) mg/dl AST (13-39) U/L ALT (7-52) U/L Alkaline Phosphatase (34-104) U/L Total Protein (6.0-8.3) gm/dl Albumin (3.4-5.0) gm/dl Globulin (2.5-4.0) gm/dl Albumin/Globulin Ratio (0.9-2) Triglycerides (0-150) mg/dl Cholesterol (0-200) mg/dl LDL Cholesterol, Calc mg/dl VLDL Cholesterol, Calc (0-30) mg/dl HDL Cholesterol mg/dl Cholesterol/HDL Ratio (0-5) Lipase (11-82) U/L Urine Opiates Screen Neg (Neg) Ur Methadone, Qual Neg (Neg) Urine Barbiturates Neg (Neg) Ur Phencyclidine (PCP) Neg (Neg) U Amphetamin/Meth Scrn Neg (Neg) MDMA (Ecstasy) Screen Neg (Neg) U Benzodiazepines Scrn Neg (Neg) Ur Cocaine Metabolite Neg (Neg) U Marijuana (THC) Screen Neg (Neg) Ethyl Alcohol mg/dL (<10.0) mg/dl Diagnostic Findings CTAP: IMPRESSION: 1. Findings consistent with acute pancreatitis. Pancreatic necrosis cannot be excluded given hypoenhancement of the majority of the pancreas. No well-defined lesion identified however a follow-up CT of the abdomen pancreas protocol in one month is recommended to exclude the possibility of an underlying pancreatic lesion. 2. Hepatic steatosis and hepatomegaly. 3. Mesenteric and omental edema. This may be related to acute pancreatitis although is nonspecific and can be assessed on follow-up CT. 2.1 cm focus of nodular densities within the mesentery could simply represent mesenteric vessels. However, this should be assessed assessed on the follow-up CT to ensure resolution. 4. No bowel obstruction. No bowel wall thickening. 5. Colonic diverticulosis. No evidence for acute diverticulitis. (1) Pancreatitis Acute pancreatitis complication: no infection or necrosis Chronicity: acute Pancreatitis type: unspecified pancreatitis type Qualified Code(s): K85.90 - Acute pancreatitis without necrosis or infection, unspecified
--- NOTE | 2023-05-06 14:25 | Hospitalist Progress Note ---
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 In ER afebrile. No leukocytosis. Lipase: 1165. LFTs WNL. He is being managed for the following: Pancreatitis: ? infected Abdominal pain: Abnormal CT of the abdomen: Patient presenting with abdominal pain, had elevated lipase and normal LFT at presentation. Admitting CTAP consistent with acute pancreatitis, concern for pancreatic necrosis -follow-up CT of the abdomen pancreas protocol in 1 month. Also revealed mesenteric and omental edema, 2.1 cm focus of nodular densities within the mesentery. This needs to be assessed on the follow-up CT scan in 1 month. N.p.o., IV fluid, nausea and pain medications. Patient started on ertapenem 05/06 for concern of infectious pancreatitis given fever and slight rise in WBC. GI evaluated, will follow. Plan for outpatient EUS in 6 to 8 weeks. Patient reports improving pain, lipase trended down. Labs in AM. Possible clear liquids later in the evening if pain resolves or tomorrow morning after assessment. New onset diabetes mellitus: A1c of 10.3, patient denies diagnosis of diabetes in the past. Patient counseled regarding lifestyle modification. 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 Patient counseled in depth regarding annual exam follow-up for eye/normal tissue/kidneys. Patient also made aware the need for starting him on statin and hypertension medications along with diabetic medications. Patient not agreeable to any medications be added until he sees his PCP as an outpatient, he stated that he will think about metformin for the time being - will follow. Patient encouraged to ask any questions if he has to clear confusion/help him make decisions. Hypertension: Patient hypertensive in the ED, reports being hypertensive in the past but has been discontinued on metoprolol per patient. Currently not on any hypertensive medications and patient not interested in adding any hypertensive medication. Patient advised to closely follow-up with PCP for ongoing long-term management and need for hypertensive medication evaluation. 10/19/2021 echo: Grade 1 diastolic dysfunction, EF 60 to 64%, LV wall thickness and cavity size normal. He will need repeat echo as OP. Smoking tobacco/alcohol use: Patient advised on quitting smoking tobacco and alcohol consumption. Made aware of long-term cardiovascular risks in the setting of his newly diagnosed diabetes/possible untreated hypertension. History of DVT: History of lower extremity DVT. Continue with home Xarelto History of GERD: Continue home medications as able DVT prophylaxis: Patient already on Xarelto Full code Disposition: Likely discharge in next 2 days. Admission and Anticipated Discharge Date Admission Date: May 05, 2023 Subjective Patient was seen and examined at bedside. Patient was lying in bed, on room air, NAD, patient's at bedside. Patient reports improving upper belly pain, denies nausea/vomiting/diarrhea. Patient was febrile yesterday evening with Tmax of 38 C. Received tylenol in AM. With patient's at bedside, patient was extensively counseled on lifestyle modification/need for starting him on diabetic meds/need for starting him on moderate dose statin/need for starting him on blood pressure medication. Patient declined any medications for blood pressure and lipids for now, stated that he would be thinking about the metformin but would not want any other medications be added at this point. Patient advised to closely follow-up with PCP for second opinion as he was made aware that this is very important that he be started on these medications appropriately. Patient also made aware that he needs ongoing follow-up of with his eye examination/neuropathy examination/kidney examination regularly. Physical Exam Physical Exam: GENERAL: Alert and oriented x3. NAD, on RA. HEENT: No pallor, no icterus. Pupils equal, round and reactive to light. Oral mucosa moist. NECK: No JVD, no neck masses. HEART: S1 and S2 heard. Regular rate and rhythm. No murmur, no gallop. RESPIRATORY SYSTEM: Normal AP diameter. No accessory muscle use. No wheezing, no crackles. ABDOMEN: Soft, bowel sounds present, epigastric tender - mild, no distention. CENTRAL NERVOUS SYSTEM: No facial droop. Speech is clear. Obeys simple commands. Moves extremities. EXTREMITIES: No edema, no erythema seen. Results & Data Results & Data Vital Signs (Past 12 Hours) Vital Signs Temp Pulse Pulse Resp BP BP Pulse Ox 05/06/23 12:54 97 H 18 170/83 H 96 05/06/23 08:16 36.7 C 97 H 16 119/79 98 05/06/23 06:00 90 05/06/23 04:33 36.7 C 89 20 138/82 96 O2 Del Method 05/06/23 12:54 Room Air 05/06/23 08:16 Room Air 05/06/23 06:00 05/06/23 04:33 Room Air (1) Pancreatitis Chronicity: acute Pancreatitis type: unspecified pancreatitis type Acute pancreatitis complication: no infection or necrosis Qualified Code(s): K85.90 - Acute pancreatitis without necrosis or infection, unspecified
[2023-05-06 14:28] LABS: Protein Creatinine Ratio Urine 0.4 (0-0.2); Total Protein Urine Random 28.5 mg/dl (0-11.9)
[2023-05-06] MEDS: MAGNESIUM SULFATE / D5W 1 GM/100 ML BAG IV SCH ×2 (14:35→18:23)
[2023-05-06] MEDS: RIVAROXABAN 20 MG TAB PO SCH (20:25)
[2023-05-06] MEDS ORDERED: Nursing to Pharmacy Communication SCH (22:15)
[2023-05-07] MEDS: LACTATED RINGER'S 1,000 ML IV SCH ×3 (03:45→16:40)
[2023-05-07] MEDS: INSULIN ASPART PER UNIT CHARGE SC SCH ×5 (03:45→20:37)
[2023-05-07 06:49] LABS: Hemoglobin 12.4 g/dl (14.0-18.0); Mean Corpuscular Hemoglobin 29.1 pg (25.0-34.0); Mean Corpuscular Hgb Conc 34.4 g/dL (32.0-36.0); Mean Corpuscular Volume 84.5 fL (80.0-100.0); Mean Platelet Volume 9.9 fL (9.4-12.4); Platelet Count 254 K/uL (130-400); RDW Coefficient of Variation 12.9 % (11.5-14.5); RDW Standard Deviation 39.4 fL (36.4-46.3); Red Blood Count 4.26 M/uL (4.70-6.10); White Blood Count 10.35 K/ul (4.8-10.8)
[2023-05-07 07:20] LABS: BUN Creatinine Ratio 9.6 (10-20); Calcium 8.2 mg/dl (8.6-10.3); Creatinine Clr Calc Pharmacy 152.5 ml/min; Est GFR (African American) 121.9 ml/min; Est GFR (Non-African American) 105.2 ml/min; Phosphorus 2.4 mg/dl (2.5-4.9); Potassium 3.7 mmol/L (3.5-5.1)
[2023-05-07] MEDS ORDERED: POTASSIUM CHLORIDE CRTAB 20 MEQ TABCR PO STA (08:51)
[2023-05-07] MEDS ORDERED: LANTUS PER UNIT CHARGE SC SCH (09:00)
[2023-05-07] MEDS: THIAMINE HCL 100 MG TAB PO SCH (09:48)
[2023-05-07] MEDS: FOLIC ACID 400 MCG TAB PO SCH (09:48)
[2023-05-07] MEDS: FAMOTIDINE 20 MG in SYRINGE 3 ML IV SCH ×2 (10:14→20:15)
[2023-05-07] MEDS: POT PHOSPHATE MONOBASIC W/ SOD TAB PO SCH ×4 (10:15→20:12)
--- NOTE | 2023-05-07 10:48 | Gastroenterology Progress Note ---
Date of Service May 07, 2023 Assessment & Plan (1) Pancreatitis: Plan 52-year-old male admitted with sudden onset of epigastric pain, nausea vomiting, found to have CT and laboratory evidence of pancreatitis. This appears to be acute and uncomplicated. Differential diagnosis discussed, 90% of pancreatitis is due to alcohol or gallstones. The other 10% is believed to be from a mixture of medications, autoimmune, genetic or anatomic causes. He does drink alcohol on occasion, and though no obvious stone seen on imaging, he may have passed a biliary stone. - He has improved clinically with resolution of abd pain after hydration and bowel rest. He has had an appropriate 2 pt drop in H/H. Renal function remains stable. He has been found to have diabetes with an A1C > 10. - Continue supportive care with hydration - Advance diet to full liquids for lunch, then low fat diet as tolerated - Avoid ETOH, tobacco - I encouraged up out of bed as tolerated - Trend CBC, LFTs, BMP daily as inpt IgG4 subclasses pending We will plan for eventual EUS as outpatient after the acute episode resolves in 6 to 8 weeks and patient is agreeable - Pt should have repeat CTAP once his acute issues resolve to f/u on mesenteric changes seen on admit CT; would encourage pt to f/u with PCP for that and he is aware - GI will sign off, please call with questions Thank you for allowing us to participate in the care of this patient. Please call with any acute changes, questions or concerns. Please see addendum below with additional recommendation from my supervising physician. Admission and Anticipated Discharge Date Admission Date: May 05, 2023 Supervising Physician Co-Signing Physician Notes Agree with pe as documented Admitted with pancreatitis, questionable etiology is alcohol, though igg4 subclasses sent to rule out other etiologies. Pain resolved with supportive care - iv fluids Agree with further plan of care as documented. Outpatient eus will be arranged in 6-8 weeks approximately. Subjective Patient seen and examined, chart reviewed. No acute events overnight. Pt tolerating clear liquid diet and asking for more food. No nausea, vomiting. states his abd pain is resolved. He has been up out of bed walking the halls. No fever, chills, jaundice, melena, hematocehzia. Review of Systems Review of Systems: All systems reviewed & are unremarkable except as noted in HPI & below Physical Exam Constitutional: well developed, well nourished and comfortable; no acute distress Neck: trachea midline Respiratory: normal respiratory effort, lungs clear to auscultation Cardiovascular: RRR, no murmur, no edema Gastrointestinal (Abdomen): soft, nontender, nondistended, normal BS Skin: no rashes, warm and dry Results & Data Vital Signs (Past 12 Hours) Vital Signs Temp Pulse Resp BP BP Pulse Ox O2 Del Method 05/07/23 07:35 36.7 C 87 18 141/89 H 95 Room Air 05/07/23 03:43 36.7 C 92 H 18 141/76 H 96 Room Air 05/06/23 23:30 36.9 C 89 18 144/90 H 96 Room Air (1) Pancreatitis Acute pancreatitis complication: no infection or necrosis Chronicity: acute Pancreatitis type: unspecified pancreatitis type Qualified Code(s): K85.90 - Acute pancreatitis without necrosis or infection, unspecified
--- NOTE | 2023-05-07 10:52 | Communication Note ---
Date of Service: May 07, 2023 Mr. Puente is a 52 yo man with medical Hx of DVT and gastroesophageal reflux disease who was admitted to [facility] on 05/22 for acute progressive abdominal pain. CT scan of the abdomen was consistent with acute pancreatitis with hypoenhancement of the majority of the pancreas. It further demonstrated hepatic steatosis and hepatomegaly. As well as mesenteric and omental edema. He only had 1 episode of fever at 38 C on the day of presentation and did have leukocytosis of 11.7 on the second day of admission and which resolved today. He he was started on ertapenem for possible infected necrotic pancreatitis. Assessment: 1. Acute pancreatitiswithout any evidence of necrotic pancreatitis Recommendations: At this point, without any evidence of necrotic pancreatitis, and without any fever or hemodynamic instability, there is no indication for antibiotics. I would recommend stopping all antibiotics and continuing supportive care including IV fluids, pain control and advancing diet gradually.
[2023-05-07] MEDS: ADVANCED PROBIOTIC 1250 MG CAPSULE PO SCH (11:30)
[2023-05-07] MEDS: ERTAPENEM SODIUM 1,000 MG in SYRINGE 0 ML IV SCH (11:30)
--- NOTE | 2023-05-07 14:29 | Pharmacy Report ---
Pharmacy Glycemic Short Note 2 - Date of Service May 07, 2023 - Glycemic Short BSG Results (Last 24 hours): 05/06/23 05/06/23 05/06/23 14:25 17:32 20:12 Glucose POC Glucose 165 H 180 H 215 H 05/06/23 05/07/23 05/07/23 23:25 03:36 06:00 Glucose 175 H POC Glucose 209 H 221 H 05/07/23 05/07/23 08:12 11:55 Glucose POC Glucose 174 H 118 H OUTPATIENT ANTIDIABETIC REGIMEN: * n/a HbA1c ordered for 05/06/23 AM ASSESSMENT: 05/07 * Al received 31 units of insulin yesterday (15 were basal) * Fasting BSG this AM slightly above goal range, increase basal insulin by 25% * Mealtime BSGs above goal range yesterday, Novolog tightened further today to a weight based stress of 2 * Continues LR @ 150mL/hr, ertapenem discontinued today * Diet advanced to clears and now to T2DM 05/05: * AB is a 52 year old male admitted w/ acute pancreatitis * Hyperglycemia noted in ED in patient w/ no known history of diabetes * Per H&P, patient is not interested in starting oral medications at this time * BSG of 377 mg/dL on presentation -> 257 mg/dL this afternoon w/ IV fluids only * Given uncertainty in insulin needs and lack of HbA1c - will be conservative w/ initial insulin dosing * q4h Novolog while NPO PLAN FOR INPATIENT GLYCEMIC CONTROL: * Basal insulin * Lantus 20 units SC daily * Bolus insulin * NovoLog per scale ACHS or Q6hrs while NPO * Goal Range: Low 110 mg/dL - High 140 mg/dL * Correction Factor: 20 mg/dL/unit * Nutritional / Prandial insulin per carb ratio of 1 unit per 7 grams CHO consumed
--- NOTE | 2023-05-07 16:39 | Hospitalist Progress Note ---
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 In ER afebrile. No leukocytosis. Lipase: 1165. LFTs WNL. He is being managed for the following: Pancreatitis: ? infected Abdominal pain: Abnormal CT of the abdomen: Patient presenting with abdominal pain, had elevated lipase and normal LFT at presentation. Admitting CTAP consistent with acute pancreatitis, concern for pancreatic necrosis -follow-up CT of the abdomen pancreas protocol in 1 month. Also revealed mesenteric and omental edema, 2.1 cm focus of nodular densities within the mesentery. This needs to be assessed on the follow-up CT scan in 1 month. ADAT, IV fluid, nausea and pain medications. DC ertapenem. d/w ID. GI evaluated, appreciate recs. Plan for outpatient EUS in 6 to 8 weeks. Patient reports improving pain, lipase trended down. Labs in AM. Improving pain, to full liq in am, low fat/soft diet in dinner; if no pain/tolerating, likely dc susannah. New onset diabetes mellitus: A1c of 10.3, patient denies diagnosis of diabetes in the past. Patient counseled regarding lifestyle modification. prosthodontist/educator consult. Patient counseled in depth regarding annual exam follow-up for eye/normal tissue/kidneys. Patient also made aware the need for starting him on statin and hypertension medications along with diabetic medications. Patient not agreeable to any medications be added until he sees his PCP as an outpatient, he stated that he be ok w/ 500 mg daily of metformin for the time being - no other meds or higher dose of metformin per pt. Patient encouraged to ask any questions if he has to clear confusion/help him make decisions. Pt will need at dc: 1.) OneTouch Verio Test Strips- to check 1x/day. 2.) OneTouch Delica Lancet 33 gauge- to check 1x/day. 3.) Metformin ER 500 mg daily. Hypertension: Patient hypertensive in the ED, reports being hypertensive in the past but has been discontinued on metoprolol per patient. Currently not on any hypertensive medications and patient not interested in adding any hypertensive medication. Patient advised to closely follow-up with PCP for ongoing long-term management and need for hypertensive medication evaluation. 10/19/2021 echo: Grade 1 diastolic dysfunction, EF 60 to 64%, LV wall thickness and cavity size normal. He will need repeat echo as OP. Smoking tobacco/alcohol use: Patient advised on quitting smoking tobacco and alcohol consumption. Made aware of long-term cardiovascular risks in the setting of his newly diagnosed diabetes/possible untreated hypertension. History of DVT: History of lower extremity DVT. Continue with home Xarelto History of GERD: Continue home medications as able DVT prophylaxis: Patient already on Xarelto Full code Disposition: Likely discharge susannah Admission and Anticipated Discharge Date Admission Date: May 05, 2023 Subjective Patient was seen and examined at bedside. Patient was lying in bed, on room air, NAD, patient's at bedside. Patient reports improving upper belly pain, denies nausea/vomiting/diarrhea. Tolerating diet well, to full liq today AM and then to soft/low fat diet later in the evening. d/w GI, no concern for infectious pancreatitis. Physical Exam Physical Exam: GENERAL: Alert and oriented x3. NAD, on RA. HEENT: No pallor, no icterus. Pupils equal, round and reactive to light. Oral mucosa moist. NECK: No JVD, no neck masses. HEART: S1 and S2 heard. Regular rate and rhythm. No murmur, no gallop. RESPIRATORY SYSTEM: Normal AP diameter. No accessory muscle use. No wheezing, no crackles. ABDOMEN: Soft, bowel sounds present, epigastric tender - improved, no distention. CENTRAL NERVOUS SYSTEM: No facial droop. Speech is clear. Obeys simple commands. Moves extremities. EXTREMITIES: No edema, no erythema seen. Results & Data Results & Data Vital Signs (Past 12 Hours) Vital Signs Temp Pulse Pulse Resp BP Pulse Ox O2 Del Method 05/07/23 15:11 36.8 C 93 H 18 153/92 H 95 Room Air 05/07/23 14:05 106 H 05/07/23 11:09 36.3 C L 64 18 157/96 H 94 Room Air 05/07/23 07:35 36.7 C 87 18 141/89 H 95 Room Air 05/07/23 06:00 103 H (1) Pancreatitis Chronicity: acute Pancreatitis type: unspecified pancreatitis type Acute pancreatitis complication: no infection or necrosis Qualified Code(s): K85.90 - Acute pancreatitis without necrosis or infection, unspecified
[2023-05-07] MEDS: RIVAROXABAN 20 MG TAB PO SCH (20:13)
[2023-05-08] MEDS: LACTATED RINGER'S 1,000 ML IV SCH (02:02)
[2023-05-08 04:29] VITALS: TEMP 97.7; O2SAT 96
--- NOTE | 2023-05-08 06:02 | Communication Note ---
Date of Service: May 08, 2023 Patient roommate had increased cough symptoms and subsequently tested positive for COVID-19 this a.m. Patient currently without symptoms. Patient refusing COVID-19 test because he is going home today. Advised to watch out for development of COVID-19 symptoms following discharge.
[2023-05-08 06:56] LABS: Hematocrit (blood only) 37.8 % (42.0-52.0); Hemoglobin 12.6 g/dl (14.0-18.0); Mean Corpuscular Hemoglobin 28.5 pg (25.0-34.0); Mean Corpuscular Hgb Conc 33.3 g/dL (32.0-36.0); Mean Corpuscular Volume 85.5 fL (80.0-100.0); Mean Platelet Volume 9.7 fL (9.4-12.4); Platelet Count 285 K/uL (130-400); RDW Coefficient of Variation 12.7 % (11.5-14.5); RDW Standard Deviation 39.7 fL (36.4-46.3); Red Blood Count 4.42 M/uL (4.70-6.10); White Blood Count 8.77 K/ul (4.8-10.8)
[2023-05-08 07:15] VITALS: RESP 18
[2023-05-08 07:23] LABS: BUN Creatinine Ratio 12.5 (10-20); Calcium 8.2 mg/dl (8.6-10.3); Creatinine Clr Calc Pharmacy 155.2 ml/min; Est GFR (African American) 122.6 ml/min; Est GFR (Non-African American) 105.8 ml/min; Magnesium 1.8 mg/dl (1.7-2.4); Phosphorus 2.9 mg/dl (2.5-4.9); Potassium 3.7 mmol/L (3.5-5.1)
[2023-05-08] MEDS: FOLIC ACID 400 MCG TAB PO SCH (08:32)
[2023-05-08] MEDS: THIAMINE HCL 100 MG TAB PO SCH (08:32)
[2023-05-08] MEDS: FAMOTIDINE 20 MG in SYRINGE 3 ML IV SCH (08:32)
[2023-05-08] MEDS: ADVANCED PROBIOTIC 1250 MG CAPSULE PO SCH (08:32)
[2023-05-08] MEDS: INSULIN ASPART PER UNIT CHARGE SC SCH (08:35)
[2023-05-08] MEDS ORDERED: LANTUS PER UNIT CHARGE SC SCH (09:00)
--- NOTE | 2023-05-08 09:18 | Hospitalist Progress Note ---
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 In ER afebrile. No leukocytosis. Lipase: 1165. LFTs WNL. He is being managed for the following: Acute Pancreatitis: Hepatic steatosis Mesenteric changes as below --Abnormal CT of the abdomen:Findings consistent with acute pancreatitis. Pancreatic necrosis cannot be excluded given hypoenhancement of the majority of the pancreas. No well-defined lesion identified however a follow-up CT of the abdomen pancreas protocol in one month is recommended to exclude the possibility of an underlying pancreatic lesion. Hepatic steatosis and hepatomegaly. Mesenteric and omental edema. This may be related to acute pancreatitis although is nonspecific and can be assessed on follow-up CT. 2.1 cm focus of nodular densities within the mesentery could simply represent mesenteric vessels. However, this should be assessed assessed on the follow-up CT to ensure resolution. No bowel obstruction. No bowel wall thickening.Colonic diverticulosis. No evidence for acute diverticulitis. --Lipase levels improved --Normal LFTs Received IV fluids Tolerated diet Appreciate GI input Advised the avoid alcohol use Advised to get repeat CT abdomen in 1 month as outpatient Also advised to get outpatient endoscopic ultrasound in 6 to 8 weeks and follow- up with GI New onset diabetes mellitus: HbA1C:10.3 Counseled regarding lifestyle modification agricultural extension educator consulted Patient counseled in depth regarding annual exam follow-up for eye/kidneys etc. Patient also made aware the need for starting him on statin and hypertension medications along with diabetic medications. Patient not agreeable to be added on any medications until he follows with his PCP Agreed to be started on Metformin XR 500mg once daily only Hypertension: Persistent elevation of BP H/O HTN--was on Metoprolol per patient 10/19/2021 echo: Grade 1 diastolic dysfunction, EF 60 to 64%, LV wall thickness and cavity size normal. 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 H/O DVT: Continue Xarelto GERD: Continue home medications COVID 19 exposure Patient refused screening (Recommended) Denies any cough, dyspnea, chest pain, dizziness, nausea, vomiting, abdominal pain DVT Px: Xarelto Code Status Full code Disposition: Home Admission and Anticipated Discharge Date Admission Date: May 05, 2023 Subjective Patient is seen and examined at bedside. Eager to get discharged Tolerating current diet Denies any nausea, vomiting, abdominal pain, chest pain, dyspnea No other complaints Review of Systems Review of Systems: All systems reviewed & are unremarkable except as noted in Subjective Physical Exam Physical Exam: Physical Exam: Vitals signs as noted above General Appearance:Obese, no apparent distress Head: normocephalic, Atraumatic Eyes: normal inspection, EOMI Neck: supple, Trachea midline Respiratory/Chest: Normal breath sounds, CTA, No accessory muscle use Cardiovascular: S1, S2, No murmur Abdomen/GI:Soft, Non tender, Bowel sounds present Extremities/Musculoskeletal:normal inspection, Trace pedal edema Neurologic/Psych:AAOX3, grossly no focal neurological deficits Skin: normal color, warm Results & Data Results & Data Vital Signs (Past 12 Hours) Vital Signs Temp Pulse Pulse Resp BP BP Pulse Ox 05/08/23 07:34 106 H 05/08/23 07:14 36.5 C 87 18 143/89 H 96 05/08/23 04:28 36.5 C 85 20 142/80 H 96 05/08/23 00:41 36.6 C 84 20 148/81 H 98 05/07/23 22:01 85 O2 Del Method 05/08/23 07:34 05/08/23 07:14 Room Air 05/08/23 04:28 Room Air 05/08/23 00:41 Room Air 05/07/23 22:01 Laboratory Results Short CBC 05/08/23 Range/Units 05:59 WBC 8.77 (4.8-10.8) K/ul Hgb 12.6 L (14.0-18.0) g/dl Hct 37.8 L (42.0-52.0) % Plt Count 285 (130-400) K/uL BMP 05/08/23 05:59 Sodium 137 Potassium 3.7 Chloride 102 Carbon Dioxide 27 BUN 9 Creatinine 0.72 Glucose 165 H Calcium 8.2 L (1) Pancreatitis Acute pancreatitis complication: no infection or necrosis Chronicity: acute Pancreatitis type: unspecified pancreatitis type Qualified Code(s): K85.90 - Acute pancreatitis without necrosis or infection, unspecified
--- NOTE | 2023-05-08 09:32 | Discharge Summary ---
Date of Service May 08, 2023 Admission HPI Per Admitting Provider Patient is a 48-year-old male with PMH DVT chronically anticoagulated on Xarelto, GERD, presented to ER with complaint of abdominal pain started this morning. Patient states woke up this morning feeling fine, had couple coffee with creamer and went to bathroom and after started with epigastric and left upper quadrant abdominal discomfort that radiates to left chest and left rib cage. Patient states was having constipation. Did have BM today. Patient states initially thought discomfort was gas pain however pain has continued. Reports some nausea, trying half a glass flat cola. Reports 1 episode emesis. Denies history of pancreatitis. States drinks ETOH socially. Last last had 1 drink 2 days ago. Denies fever/chills, diaphoresis, hematemesis, melena, hematochezia, LLAMAS, dizziness, syncope, neck pain, other CP, SOB, palpitations, cough, sore throat, rhinorrhea, paresthesias, extremity weakness, extremity edema, rashes, urinary symptoms. Admission Exam Per Admitting Provider General: no acute distress, obese Head: normocephalic, atraumatic Eyes: conjunctiva non-injected, anicteric ENT: normal inspection external ears, nose, mucous membranes moist Neck: supple, trachea midliner Lungs: clear, no respiratory distress, no wheezing/rhonchi/rales CV: RRR, no murmur, no pretibial edema Abd: protuberant, normal BS, soft, +tender palpation epigastric, LUQ with guarding, diffuse lower abdomen Ext: no cyanosis, no calf tenderness Neuro: A&O x 3, no focal deficits noted, normal affect Skin: warm, dry Principal Diagnosis Acute pancreatitis Diabetes mellitus type 2 Hypertension Discharge Data Allergies Allergy/AdvReac Type Severity Reaction Status Date / Time No Known Allergies Allergy Unverified 05/05/23 09:39 Consultations 05/05/23 10:50 ED Decision to Admit Stat 05/05/23 14:04 Consult Gastroenterology Routine Procedures Performed Laboratory Results WBC 8.77 K/ul (4.8-10.8) 05/08/23 05:59 RBC 4.42 M/uL (4.70-6.10) L 05/08/23 05:59 Hgb 12.6 g/dl (14.0-18.0) L 05/08/23 05:59 Hct 37.8 % (42.0-52.0) L 05/08/23 05:59 MCV 85.5 fL (80.0-100.0) 05/08/23 05:59 MCH 28.5 pg (25.0-34.0) 05/08/23 05:59 MCHC 33.3 g/dL (32.0-36.0) 05/08/23 05:59 RDW Std Deviation 39.7 fL (36.4-46.3) 05/08/23 05:59 RDW Coeff of [place] 12.7 % (11.5-14.5) 05/08/23 05:59 Plt Count 285 K/uL (130-400) 05/08/23 05:59 MPV 9.7 fL (9.4-12.4) 05/08/23 05:59 Immature Gran % (Auto) 0.5 % 05/05/23 08:56 Neut % (Auto) 75.1 % 05/05/23 08:56 Lymph % (Auto) 15.9 % 05/05/23 08:56 [place] % (Auto) 5.4 % 05/05/23 08:56 Eos % (Auto) 2.5 % 05/05/23 08:56 Baso % (Auto) 0.6 % 05/05/23 08:56 Neut # (Auto) 8.00 K/uL (1.40-6.50) H 05/05/23 08:56 Lymph # (Auto) 1.69 K/uL (1.20-3.40) 05/05/23 08:56 [place] # (Auto) 0.57 K/uL (0.11-0.59) 05/05/23 08:56 Eos # (Auto) 0.27 K/uL (0.00-0.50) 05/05/23 08:56 Baso # (Auto) 0.06 K/uL (0.00-0.20) 05/05/23 08:56 Immature Gran # (Auto) 0.05 K/uL (0.01-0.20) 05/05/23 08:56 Sodium 137 mmol/L (136-145) 05/08/23 05:59 Potassium 3.7 mmol/L (3.5-5.1) 05/08/23 05:59 Chloride 102 mmol/L (98-107) 05/08/23 05:59 Carbon Dioxide 27 mmol/L (21-32) 05/08/23 05:59 Anion Gap 8 (3-11) 05/08/23 05:59 BUN 9 mg/dl (6-23) 05/08/23 05:59 Creatinine 0.72 mg/dl (0.6-1.4) 05/08/23 05:59 Est Cr Clr Drug Dosing 155.2 ml/min 05/08/23 05:59 Est GFR ( Amer) 122.6 ml/min 05/08/23 05:59 Est GFR (Non-Af Amer) 105.8 ml/min 05/08/23 05:59 BUN/Creatinine Ratio 12.5 (10-20) 05/08/23 05:59 Glucose 165 mg/dl (70-99(Fasting)) H 05/08/23 05:59 POC Glucose 162 mg/dl (70-99) H 05/08/23 07:55 Estimat Average Glucose 249 mg/dl 05/06/23 05:43 Hemoglobin A1c 10.3 % (4.5-5.6) H 05/06/23 05:43 Calcium 8.2 mg/dl (8.6-10.3) L 05/08/23 05:59 Phosphorus 2.9 mg/dl (2.5-4.9) 05/08/23 05:59 Magnesium 1.8 mg/dl (1.7-2.4) 05/08/23 05:59 Total Bilirubin 0.9 mg/dl (0.2-1.0) 05/06/23 05:43 AST 17 U/L (13-39) 05/06/23 05:43 ALT 24 U/L (7-52) 05/06/23 05:43 Alkaline Phosphatase 73 U/L (34-104) 05/06/23 05:43 Troponin I High Sens 4.4 pg/ml (0-20) 05/05/23 08:56 Total Protein 6.3 gm/dl (6.0-8.3) 05/06/23 05:43 Albumin 3.6 gm/dl (3.4-5.0) 05/06/23 05:43 Globulin 2.7 gm/dl (2.5-4.0) 05/06/23 05:43 Albumin/Globulin Ratio 1.3 (0.9-2) 05/06/23 05:43 Triglycerides 164 mg/dl (0-150) H 05/06/23 05:43 Cholesterol 133 mg/dl (0-200) 05/06/23 05:43 LDL Cholesterol, Calc 64 mg/dl 05/06/23 05:43 VLDL Cholesterol, Calc 33 mg/dl (0-30) H 05/06/23 05:43 HDL Cholesterol 36 mg/dl 05/06/23 05:43 Cholesterol/HDL Ratio 3.7 (0-5) 05/06/23 05:43 Lipase 90 U/L (11-82) H 05/06/23 05:43 Urine Color Yellow 05/05/23 09:33 Urine Appearance Clear (Clear) 05/05/23 09:33 Urine pH 7.0 (4.5-7.5) 05/05/23 09:33 Ur Specific [place] 1.033 (1.000-1.030) H 05/05/23 09:33 Urine Protein Negative (Negative) 05/05/23 09:33 Urine Glucose (UA) 3+ (Negative) H 05/05/23 09:33 Urine Ketones 2+ (Negative) H 05/05/23 09:33 Urine Blood Negative (Negative) 05/05/23 09:33 Urine Nitrite Negative (Negative) 05/05/23 09:33 Urine Bilirubin Negative (Negative) 05/05/23 09:33 Urine Urobilinogen Negative (Negative) 05/05/23 09:33 Ur Leukocyte Esterase Negative (Negative) 05/05/23 09:33 Ur Random Creatinine 73.0 mg/dl 05/06/23 Unknown U Random Total Protein 28.5 mg/dl (0-11.9) H 05/06/23 Unknown Protein/Creatinin Ratio 0.4 (0-0.2) H 05/06/23 Unknown Urine Opiates Screen Neg (Neg) 05/05/23 09:33 Ur Methadone, Qual Neg (Neg) 05/05/23 09:33 Urine Barbiturates Neg (Neg) 05/05/23 09:33 Ur Phencyclidine (PCP) Neg (Neg) 05/05/23 09:33 U Amphetamin/Meth Scrn Neg (Neg) 05/05/23 09:33 MDMA (Ecstasy) Screen Neg (Neg) 05/05/23 09:33 U Benzodiazepines Scrn Neg (Neg) 05/05/23 09:33 Ur Cocaine Metabolite Neg (Neg) 05/05/23 09:33 U Marijuana (THC) Screen Neg (Neg) 05/05/23 09:33 Ethyl Alcohol mg/dL < 10.0 mg/dl (<10.0) 05/05/23 15:55 Impressions Abdomen/Pelvis CT 05/05/23 08:43 CT OF THE ABDOMEN AND PELVIS WITH CONTRAST CLINICAL HISTORY: LUQ/epgiastric pain, nausea and vomiting. COMPARISON STUDY: None. TECHNIQUE: Following IV administration of 90 mL of Optiray, axial images of the abdomen and pelvis were obtained from the lung bases to the proximal femurs. Images were reviewed in the axial, sagittal, and coronal planes. IV contrast was administered without complication. Automated exposure control was utilized for the study. A dose lowering technique was utilized adhering to the principles of ALARA. CT DOSE: 1542.56 mGy.cm FINDINGS: Lung bases are unremarkable. No pneumatosis, free air or portal venous gas is present. Moderate to severe hepatic steatosis is noted. The liver is enlarged. There is mild splenomegaly. Adrenal glands and kidneys are unremarkable. There is no hydronephrosis. There is no biliary or pancreatic ductal dilatation. Pancreatic head and uncinate process are atrophic. The body and tail are edematous. There is hypoenhancement of the pancreatic head, body and tail. No peripancreatic fluid collection is present. Fluid adjacent to the pancreatic body and tail is noted. There is also mesenteric and omental edema. No fluid collections are present. A 2.1 cm focus of clustered nodular densities within the mesentery on image 220 of 413 are present. Colonic diverticulosis is noted. There is no evidence for acute diverticulitis. The appendix is normal. Major vasculature is patent. Postoperative findings within the lumbar spine are incidentally noted. IMPRESSION: 1. Findings consistent with acute pancreatitis. Pancreatic necrosis cannot be excluded given hypoenhancement of the majority of the pancreas. No well-defined lesion identified however a follow-up CT of the abdomen pancreas protocol in one month is recommended to exclude the possibility of an underlying pancreatic lesion. 2. Hepatic steatosis and hepatomegaly. 3. Mesenteric and omental edema. This may be related to acute pancreatitis although is nonspecific and can be assessed on follow-up CT. 2.1 cm focus of nodular densities within the mesentery could simply represent mesenteric vessels. However, this should be assessed assessed on the follow-up CT to ensure resolution. 4. No bowel obstruction. No bowel wall thickening. 5. Colonic diverticulosis. No evidence for acute diverticulitis. ACT 112: Negative or not required by law. Electronically signed by: Pb Payan M.D. 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 No leukocytosis. Lipase: 1165. LFTs WNL. He is being managed for the following: Acute Pancreatitis: Hepatic steatosis Mesenteric changes as below --Abnormal CT of the abdomen:Findings consistent with acute pancreatitis. Pancreatic necrosis cannot be excluded given hypoenhancement of the majority of the pancreas. No well-defined lesion identified however a follow-up CT of the abdomen pancreas protocol in one month is recommended to exclude the possibility of an underlying pancreatic lesion. Hepatic steatosis and hepatomegaly. Mesenteric and omental edema. This may be related to acute pancreatitis although is nonspecific and can be assessed on follow-up CT. 2.1 cm focus of nodular densities within the mesentery could simply represent mesenteric vessels. However, this should be assessed assessed on the follow-up CT to ensure resolution. No bowel obstruction. No bowel wall thickening.Colonic diverticulosis. No evidence for acute diverticulitis. --Lipase levels improved --Normal LFTs Received IV fluids Tolerated diet Appreciate GI input Advised the avoid alcohol use Advised to get repeat CT abdomen in 1 month as outpatient Also advised to get outpatient endoscopic ultrasound in 6 to 8 weeks and follow- up with GI New onset diabetes mellitus: HbA1C:10.3 Counseled regarding lifestyle modification nurse educator consulted Patient counseled in depth regarding annual exam follow-up for eye/kidneys etc. Patient also made aware the need for starting him on statin and hypertension medications along with diabetic medications. Patient not agreeable to be added on any medications until he follows with his PCP Agreed to be started on Metformin XR 500mg once daily only Hypertension: Persistent elevation of BP H/O HTN--was on Metoprolol per patient 10/19/2021 echo: Grade 1 diastolic dysfunction, EF 60 to 64%, LV wall thickness and cavity size normal. 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 H/O DVT: Continue Xarelto GERD: Continue home medications COVID 19 exposure Patient refused screening (Recommended) Denies any cough, dyspnea, chest pain, dizziness, nausea, vomiting, abdominal pain Obesity BMI 37 DVT Px: Xarelto Code Status Full code Disposition: Home Total Time Total Time Spent Total Time Spent (In Minutes): 65 minutes Discharge Plan Discharge Items Patient Disposition: Home - Self-Care Reason For Visit: PANCREATITIS Discharge Diagnosis: Acute pancreatitis Diabetes mellitus type 2 Hypertension Activity: Per Instructions section Exercise/Sports: Gradually increase as tolerated Non-emergency contact: Primary Care Provider, Speech Coach and Caving Guide Call non-emergency contact if: you have any medication questions, your symptoms worsen, your pain is concerning for you and you have a fever Follow-up/Referrals: Raisa Apple MD [Hospitalist] - (The Gi office will contact you for a follow up appointment/testing.) Karuna Torres PA-C [Primary Care Provider] - (Date & Time 05/13/2023 9:00 AM Provider Karuna Torres PA-C [facility] ) Diet: Carb Consistent or DM2 and Low Fat Addtl Attending Provider Instructions: Follow-up with your primary care physician Karuna Torres PA-C in 1 week as advised Follow-up with your executive administrative assistant Dr. Raisa Apple for outpatient endoscopic ultrasound in 6 to 8 weeks as recommended Follow-up with your change over--for possible repeat ECHO and blood pressure management as advised. --- Obtain repeat CT abdomen pelvis as recommended by your executive administrative assistant for evaluation of mesenteric changes/pancreas. ---Your Blood Test (IgG4 subclasses) is pending at the time of discharge. Follow-up with your physician for results. --- Quit drinking alcohol and smoking as advised -- Monitor your blood glucose levels daily as recommended. Seek immediate medical attention if your symptoms reoccur or worsen Please take all medications as instructed on discharge list below. Please call if you have any questions or problems. You can reach a [facility] hospitalist on duty at [facility] 24 hours a day by calling [phone] Pending Studies at Discharge: Yes Studies:: IgG4 subclasses Stand-Alone Forms: My [facility], Smoking Cessation Medications and DC Order Prescriptions: New metformin 500 mg tablet extended release 24 hr 500 mg PO PM Qty: 30 1RF (DME) blood sugar diagnostic Strip See Rx Instructions .Route Qty: 100 0RF Rx Instructions: Check once a day as advised (DME) lancets 33 gauge misc See Rx Instructions .Route Qty: 100 0RF Rx Instructions: Check once a day as advised Continued famotidine 40 mg tablet 40 mg PO HS Xarelto 20 mg tablet 20 mg PO QPM Discharge Orders: Discharge Order (Routine); Ordered 05/08/23 Ordered By: Gee Castillo Admission Data Admit Date/Time: 05/05/23 11:17 Attending Provider: Gee Castillo Admit Provider: Gee Castillo Primary Care Provider: Karuna Torres Other Providers: Gee Castillo; Sofía Wilkes; Baron Mckinley; Jessica Nguyen; Janessa Pham; Destiny Irving; Babita [employer]Clix; Jaskaran Oliveros; Adam Valenzuela; Soumya Duarte; Lucy Garner; Nikolas Angel S; Lew Rogers; Adele Dow; Tri Phan; Sol Brown; Raisa Apple; Te Casillas; David Brink; Josue Sims; Luann Sorenson; Judit Bergman Jr Other Interventions: Discharge Summary Assessment (RN) Last Done: 05/08/23 09:57
[2023-05-08 09:59] VITALS: BP 142/80; PULSE 87
[2023-05-09 16:57] LABS: Immunoglobulin G4 34.5 mg/dL (4.0-86.0)
== END 2023-05-08 11:02 | disposition home or self-care (01) | DRG 440 ==
LOC: ED 08:21 → SUATTDRO 11:17 → EDINP 11:17 → 2N 18:08
DX: K76.0 Fatty (change of) liver, not elsewhere classified; I10 Essential (primary) hypertension; Z68.37 Body mass index [BMI] 37.0-37.9, adult; F10.90 Alcohol use, unspecified, uncomplicated; Z86.718 Personal history of other venous thrombosis and embolism; Z20.822 Contact with and (suspected) exposure to COVID-19; K85.90 Acute pancreatitis without necrosis or infection, unspecified; Z79.01 Long term (current) use of anticoagulants; K21.9 Gastro-esophageal reflux disease without esophagitis; F17.290 Nicotine dependence, other tobacco product, uncomplicated; E66.9 Obesity, unspecified; E11.65 Type 2 diabetes mellitus with hyperglycemia